=== PATIENT | male | born 1965 | race Caucasian/White ===

== ENCOUNTER 2017-06-10 08:40 | Emergency (ER) | payer SELFPAY ==
[~2017-06-10] VITALS: Ht 182.9 cm; Wt 145.1 kg
[2017-06-10] MEDS ORDERED: SODIUM CHLORIDE 0.9% 1,000 ML IVB ONE (09:25)
[2017-06-10 10:12] LABS: Basophils # (auto) 0 uL; Basophils % (auto) 0.5 % (0.0-2.0); Eosinophils # (auto) 0.2 uL; Eosinophils % (auto) 2.4 % (0.0-7.0); Hematocrit 48.5 % (41.0-53.0); Hemoglobin 16.8 g/dL (13.5-17.5); Lymphocytes # (auto) 1.3 uL; Mean Corpuscular Hemoglobin 30.3 pg (28.0-32.0); Mean Corpuscular Hgb Conc. 34.6 g/dL (32.0-36.0); Mean Corpuscular Volume 87.7 fL (80.0-100.0); Monocytes # (auto) 0.6 uL; Monocytes % (auto) 8.3 % (0.0-12.0); Neutrophils # (auto) 5.5 uL; Neutrophils % (auto) 71.8 % (37.0-80.0); Nucleated Red Blood Cells % 0.1 %; Platelet Count (auto) 225 10^3/uL (140-450); White Blood Cell 7.6 10^3/uL (4.4-10.8)
[2017-06-10 10:14] VITALS: BP 167/94
[2017-06-10 10:39] LABS: Albumin 4.2 g/dL (3.4-5.0); Bilirubin, Total 0.5 mg/dL (0.2-1.0); Calcium 9.2 mg/dL (8.5-10.1); Magnesium 2.3 mg/dL (1.6-2.6); Potassium 3.6 mmol/L (3.5-5.1); Total Protein 7.5 g/dL (6.4-8.2)
[2017-06-10 11:24] LABS: Urine Bilirubin Negative (Negative); Urine Blood Negative /uL (Negative); Urine Color Yellow (Yellow); Urine Glucose Normal (Normal); Urine Ketone Negative (Negative); Urine Nitrite Negative (Negative); Urine RBC <1 /hpf (0 - 3); Urine Squamous Epithelial Cell FEW /hpf (<5); Urine Urobilinogen Normal (Negative); Urine pH 6.5 (5.0-8.0)
== END 2017-06-10 12:39 | disposition home or self-care (01) ==
LOC: ER 08:40
DX: K57.90 Diverticulosis of intestine, part unspecified, without perforation or abscess without bleeding (principal); K76.0 Fatty (change of) liver, not elsewhere classified; E66.01 Morbid (severe) obesity due to excess calories; Z68.43 Body mass index [BMI] 50.0-59.9, adult; F17.210 Nicotine dependence, cigarettes, uncomplicated
CPT/HCPCS: 36415; 74176; 80053; 81001; 83690; 83735; 85025; 93005; 96360; 99285; J7030

== ENCOUNTER 2017-07-28 14:45 | Inpatient (IN) | payer SELFPAY ==
[~2017-07-28] VITALS: Ht 182.9 cm; Wt 147.2 kg
[2017-07-28] MEDS ORDERED: ALBUTEROL SULF 2.5 MG/0.5ML(0.5%) NEB SOLN NEB ONE ×3 (15:00→17:15)
[2017-07-28] MEDS ORDERED: IPRATROPIUM BROM 0.5 MG/2.5ML INH SOL NEB ONE ×2 (15:30→17:15)
[2017-07-28 15:52] LABS: Albumin 3.4 g/dL (3.4-5.0); Alkaline Phosphatase 89 U/L (45-117); Anion Gap 8 (5-15); Aspartate Aminotransferase 39 U/L (15-37); BUN/Creatinine Ratio 20.8; Bilirubin, Total 0.4 mg/dL (0.2-1.0); Blood Urea Nitrogen 15 mg/dL (7-18); Calcium 8.6 mg/dL (8.5-10.1); Carbon Dioxide 33 mmol/L (21-32); Chloride 91 mmol/L (98-107); GFR African American 147 mL/min; GFR Non-African American 121 mL/min; Glucose 118 mg/dL (74-106); Potassium 3.4 mmol/L (3.5-5.1); Sodium 132 mmol/L (136-145); Total Protein 7.1 g/dL (6.4-8.2)
[2017-07-28] MEDS ORDERED: cefTRIAXone 1GM/50ML D5W 50 ML IV ONE (16:00)
[2017-07-28] MEDS ORDERED: methylPREDNISolone SOD SUCC 125 MG/2 ML VL IV ONE (16:00)
[2017-07-28] MEDS ORDERED: AZITHROMYCIN 500MG/ 250ML 250 ML IV ONE (16:00)
[2017-07-28 16:08] LABS: Basophils # (auto) 0 uL; Basophils % (auto) 0.3 % (0.0-2.0); Eosinophils # (auto) 0 uL; Eosinophils % (auto) 0.3 % (0.0-7.0); Hematocrit 44.5 % (41.0-53.0); Hemoglobin 15.8 g/dL (13.5-17.5); Lymphocytes # (auto) 0.7 uL; Lymphocytes % (auto) 15.7 % (10.0-50.0); Mean Corpuscular Hemoglobin 30.3 pg (28.0-32.0); Mean Corpuscular Hgb Conc. 35.6 g/dL (32.0-36.0); Mean Corpuscular Volume 85.1 fL (80.0-100.0); Mean Platelet Volume 8.2 fL (6.9-10.8); Monocytes # (auto) 0.6 uL; Monocytes % (auto) 13.4 % (0.0-12.0); Neutrophils # (auto) 3.1 uL; Neutrophils % (auto) 70.3 % (37.0-80.0); Nucleated Red Blood Cells % 0.2 %; Platelet Count (auto) 149 10^3/uL (140-450); Red Cell Distribution Width 13.8 % (11.8-14.3); White Blood Cell 4.5 10^3/uL (4.4-10.8)
[2017-07-28] MEDS ORDERED: SODIUM CHLORIDE 0.9% 1,000 ML IV ONE (16:15)
[2017-07-28] MEDS ORDERED: POTASSIUM CHL 10% (20 MEQ/15ML) 15ml ORAL SOLN PO ONE (16:45)
[2017-07-28] MEDS: SODIUM CHLORIDE 0.9% 1,000 ML IV SCH (19:25)
[2017-07-28] MEDS ORDERED: ONDANSETRON HCL 4 MG/2 ML VIAL IV PRN (19:30)
[2017-07-28] MEDS ORDERED: TEMAZEPAM 15 MG CAP PO PRN (19:30)
[2017-07-28] MEDS ORDERED: HYDROcodone-ACET 5/325MG TAB PO PRN (19:30)
[2017-07-28] MEDS ORDERED: DOCUSATE SOD 100 MG CAP PO PRN (19:30)
[2017-07-28] MEDS ORDERED: ACETAMINOPHEN 325 MG TAB PO PRN (19:30)
[2017-07-28 21:50] VITALS: BP 132/74
[2017-07-28 22:17] VITALS: BP 132/74
[2017-07-29] MEDS: ALBUTEROL SULF 2.5 MG/0.5ML(0.5%) NEB SOLN NEB SCH ×3 (00:39→12:13)
[2017-07-29] MEDS: IPRATROPIUM BROM 0.5 MG/2.5ML INH SOL NEB SCH ×3 (00:40→12:13)
[2017-07-29 01:58] VITALS: BP 132/74
[2017-07-29] MEDS: SODIUM CHLORIDE 0.9% 1,000 ML IV SCH ×2 (03:20→12:55)
[2017-07-29 04:44] VITALS: BP 136/90
[2017-07-29 06:19] LABS: Urine Bilirubin Negative (Negative); Urine Blood Negative /uL (Negative); Urine Color Yellow (Yellow); Urine Glucose Normal (Normal); Urine Ketone Negative (Negative); Urine Nitrite Negative (Negative); Urine RBC <1 /hpf (0 - 3); Urine Urobilinogen Normal (Negative)
[2017-07-29 06:58] LABS: Basophils # (auto) 0 uL; Basophils % (auto) 0.1 % (0.0-2.0); Eosinophils # (auto) 0 uL; Hematocrit 43.6 % (41.0-53.0); Hemoglobin 15.5 g/dL (13.5-17.5); Lymphocytes # (auto) 0.5 uL; Lymphocytes % (auto) 11.9 % (10.0-50.0); Mean Corpuscular Hemoglobin 30.5 pg (28.0-32.0); Mean Corpuscular Hgb Conc. 35.6 g/dL (32.0-36.0); Mean Corpuscular Volume 85.6 fL (80.0-100.0); Monocytes # (auto) 0.5 uL; Neutrophils # (auto) 2.9 uL; Nucleated Red Blood Cells % 0.3 %; Platelet Count (auto) 144 10^3/uL (140-450); Red Cell Distribution Width 13.4 % (11.8-14.3); White Blood Cell 3.8 10^3/uL (4.4-10.8)
[2017-07-29 07:13] LABS: Albumin 3.1 g/dL (3.4-5.0); Calcium 8.7 mg/dL (8.5-10.1); Potassium 3.8 mmol/L (3.5-5.1)
[2017-07-29 07:17] LABS: Bilirubin, Total 0.3 mg/dL (0.2-1.0); Total Protein 6.9 g/dL (6.4-8.2)
[2017-07-29 08:00] VITALS: BP 154/76
[2017-07-29] MEDS ORDERED: PNEUMOCOCCAL VACC POLYS 25 MCG/0.5 ML VIAL IM ONE (08:00)
[2017-07-29] MEDS ORDERED: INFLUENZA QUAD 2017-2018 0.5 ML SYRG IM ONE (08:00)
[2017-07-29 08:32] VITALS: BP 154/76
[2017-07-29] MEDS ORDERED: cefTRIAXone 1GM/50ML D5W 50 ML IV SCH (09:00)
[2017-07-29] MEDS ORDERED: AZITHROMYCIN 500MG/ 250ML 250 ML IV SCH (10:00)
[2017-07-29] MEDS ORDERED: MULTIPLE VITAMIN TAB PO SCH (10:00)
[2017-07-29 10:34] VITALS: BP 154/76
[2017-07-29 12:38] VITALS: BP 164/81
== END 2017-07-29 13:27 | disposition home or self-care (01) | DRG 193 ==
LOC: ER 14:45 → OVERFLOW 14:46 → WEST WING 21:50
PROVIDERS: ADMIT Internal Medicine; ATTEND Internal Medicine
DX: J18.9 Pneumonia, unspecified organism (principal); J96.91 Respiratory failure, unspecified with hypoxia; E87.1 Hypo-osmolality and hyponatremia; E44.0 Moderate protein-calorie malnutrition; Z68.41 Body mass index [BMI] 40.0-44.9, adult; E66.9 Obesity, unspecified; E87.6 Hypokalemia; J45.909 Unspecified asthma, uncomplicated; E86.0 Dehydration; F17.210 Nicotine dependence, cigarettes, uncomplicated; Z23 Encounter for immunization; Z82.49 Family history of ischemic heart disease and other diseases of the circulatory system; Z83.3 Family history of diabetes mellitus
CPT/HCPCS: 36415; 71020; 80053; 81001; 83605; 83735; 84484; 85025; 87040; 87070; 87205; 93005; 94640; J0696

== ENCOUNTER 2021-12-28 13:29 | Inpatient (IN) | payer SELFPAY ==
[~2021-12-28] VITALS: Ht 182.9 cm; Wt 102.2 kg
[2021-12-28] MEDS ORDERED: SODIUM CHLORIDE 0.9% 1,000 ML IV ONE ×3 (14:15→16:45)
[2021-12-28 14:35] LABS: Basophils # (auto) 0.1 10 ^3/uL (0-0.2); Basophils % (auto) 0.4 % (0.0-2.0); Eosinophils # (auto) 0 10 ^3/uL (0-0.8); Eosinophils % (auto) 0.1 % (0.0-7.0); Hematocrit 44.7 % (41.0-53.0); Hemoglobin 15.8 g/dL (13.5-17.5); Lymphocytes # (auto) 0.7 10 ^3/uL (0.4-5.4); Lymphocytes % (auto) 3.5 % (10.0-50.0); Mean Corpuscular Hemoglobin 29.1 pg (28.0-32.0); Mean Corpuscular Hgb Conc. 35.3 g/dL (32.0-36.0); Mean Corpuscular Volume 82.6 fL (80.0-100.0); Monocytes # (auto) 0.9 10 ^3/uL (0-1.3); Monocytes % (auto) 4.8 % (0.0-12.0); Neutrophils % (auto) 91.2 % (37.0-80.0); Nucleated Red Blood Cells % 0.1 %; Red Blood Cells 5.42 10^6/uL (4.5-5.90); Red Cell Distribution Width 13.1 % (11.8-14.3); White Blood Cell 18.6 10^3/uL (4.4-10.8)
[2021-12-28 14:56] LABS: Salicylate 3.6 mg/dL (2.8-20.0)
[2021-12-28 14:56] LABS: Albumin 2.2 g/dL (3.4-5.0); BUN/Creatinine Ratio 34.7; Calcium 8.2 mg/dL (8.5-10.1); Potassium 3.3 mmol/L (3.5-5.1)
[2021-12-28 14:58] LABS: Acetaminophen < 2.0 ug/mL (10-30)
[2021-12-28 14:59] LABS: Bilirubin, Total 0.3 mg/dL (0.2-1.0); Total Protein 5.2 g/dL (6.4-8.2)
[2021-12-28 15:01] LABS: Lactic Acid w/Reflex 2.9 mmol/L (0.4-2.0)
[2021-12-28 15:12] LABS: Beta HCG, Quantitative < 1 mlU/mL (< 1)
[2021-12-28] MEDS ORDERED: methylPREDNISolone SOD SUCC 125 MG/2 ML VL IV ONE (16:15)
[2021-12-28] MEDS ORDERED: IPRATROPIUM BROM 0.5 MG/2.5ML INH SOL NEB ONE ×2 (16:15→20:00)
[2021-12-28] MEDS ORDERED: cefTRIAXone 1GM/50ML D5W 50 ML IV ONE (16:15)
[2021-12-28] MEDS ORDERED: ALBUTEROL SULF 2.5 MG/0.5ML(0.5%) NEB SOLN NEB ONE (16:15)
[2021-12-28] MEDS ORDERED: AZITHROMYCIN 500MG/ 250ML 250 ML IV ONE (16:15)
[2021-12-28] MEDS ORDERED: SODIUM CHLORIDE 0.9% 500 ML IV ONE (16:45)
[2021-12-28] MEDS ORDERED: POTASSIUM EFFERVESENT TAB 25 MEQ PO ONE (17:15)
[2021-12-28 17:26] LABS: Urine Bacteria NONE SEEN /hpf (None Seen); Urine Blood Negative /uL (Negative); Urine Hyaline Cast FEW /lpf (0 - 2); Urine Mucus FEW (None Seen); Urine Specific Gravity 1.024 (1.001-1.035); Urine WBC 3 /hpf (0 - 3)
[2021-12-28] MEDS ORDERED: MORPHINE SULFATE INJECTION 2 MG/ML SYRG IV PRN ×2 (17:30→20:00)
[2021-12-28] MEDS ORDERED: NITROGLYCERIN 0.4 MG SL TAB SL PRN (17:30)
[2021-12-28] MEDS ORDERED: DEXTROSE (50%) 50ML SYRG IV PRN (17:30)
[2021-12-28] MEDS ORDERED: IOHEXOL 350 MG/ML 100ML IJ ONE (18:01)
[2021-12-28] MEDS ORDERED: FAMOTIDINE (10MG/ML) 2ML VL IV ONE (20:00)
[2021-12-28] MEDS ORDERED: BUDESONIDE (INHALATION) 0.5 MG/2 ML NEB NEB ONE (20:00)
[2021-12-28] MEDS ORDERED: ONDANSETRON HCL 4 MG/2 ML VIAL IV PRN (20:00)
[2021-12-28] MEDS ORDERED: ALBUTEROL SULF 2.5 MG/0.5ML(0.5%) NEB SOLN NEB PRN (20:00)
[2021-12-28] MEDS ORDERED: ACETAMINOPHEN 325 MG TAB PO PRN (20:00)
[2021-12-28] MEDS ORDERED: hydrALAZINE HCL 20 MG/ML VL IV PRN (20:00)
[2021-12-28] MEDS ORDERED: LORazepam 0.5 MG TAB PO PRN (20:00)
[2021-12-28] MEDS ORDERED: HYDROcodone-ACET 5/325MG TAB PO PRN (20:00)
[2021-12-28] MEDS ORDERED: IPRATROPIUM BROM 0.5 MG/2.5ML INH SOL NEB PRN (20:15)
[2021-12-28 20:52] LABS: Magnesium 2.2 mg/dL (1.6-2.6); Phosphorus 2.4 mg/dL (2.5-4.90)
[2021-12-28] MEDS ORDERED: ACCU-CHEK COMFORT CURVE STRIP VI SCH (22:00)
[2021-12-28] MEDS ORDERED: IPRATROPIUM BROM 0.5 MG/2.5ML INH SOL NEB SCH (22:00)
[2021-12-28] MEDS ORDERED: ACETYLCYSTEINE 10 %(100MG/ML) SOL 4ML NEB SCH (22:00)
[2021-12-28] MEDS ORDERED: BUDESONIDE (INHALATION) 0.5 MG/2 ML NEB NEB SCH (22:00)
[2021-12-28] MEDS ORDERED: InsuLIN REG 1unit/0.01ml Soln (100units/ml) SC SCH (22:00)
[2021-12-28] MEDS: SODIUM CHLORIDE 0.9% 1,000 ML IV SCH (22:05)
[2021-12-28 22:53] VITALS: BP 122/62
[2021-12-28] MEDS: methylPREDNISolone SOD SUCC 40 MG/ML VL IV SCH (23:43)
[2021-12-28] MEDS: POTASSIUM CHL 20 Meq TABLET PO SCH (23:43)
[2021-12-29] VITALS (8 sets, daily range): BP systolic 113–127; BP diastolic 58–76
[2021-12-29 00:02] LABS: INR 1.06 (0.9-1.15)
[2021-12-29] MEDS: ACCU-CHEK COMFORT CURVE STRIP VI SCH ×5 (04:49→18:52)
[2021-12-29] MEDS: methylPREDNISolone SOD SUCC 40 MG/ML VL IV SCH ×2 (04:50→14:08)
[2021-12-29] MEDS: InsuLIN REG 1unit/0.01ml Soln (100units/ml) SC SCH ×5 (05:04→18:55)
[2021-12-29 05:33] LABS: Basophils # (auto) 0 10 ^3/uL (0-0.2); Basophils % (auto) 0.3 % (0.0-2.0); Eosinophils # (auto) 0 10 ^3/uL (0-0.8); Eosinophils % (auto) 0.1 % (0.0-7.0); Hematocrit 42.2 % (41.0-53.0); Hemoglobin 15.1 g/dL (13.5-17.5); Lymphocytes # (auto) 0.5 10 ^3/uL (0.4-5.4); Lymphocytes % (auto) 3.8 % (10.0-50.0); Mean Corpuscular Hemoglobin 29.8 pg (28.0-32.0); Mean Corpuscular Hgb Conc. 35.8 g/dL (32.0-36.0); Mean Corpuscular Volume 83.2 fL (80.0-100.0); Monocytes # (auto) 0.3 10 ^3/uL (0-1.3); Monocytes % (auto) 2.7 % (0.0-12.0); Neutrophils # (auto) 11.7 10 ^3/uL (1.6-8.6); Neutrophils % (auto) 93.1 % (37.0-80.0); Nucleated Red Blood Cells % 0.1 %; Red Blood Cells 5.08 10^6/uL (4.5-5.90); Red Cell Distribution Width 12.7 % (11.8-14.3); White Blood Cell 12.5 10^3/uL (4.4-10.8)
[2021-12-29 05:58] LABS: Albumin 2.1 g/dL (3.4-5.0); Anion Gap 7 (5-15); Blood Urea Nitrogen 33 mg/dL (7-18); Calcium 8.8 mg/dL (8.5-10.1); Carbon Dioxide 29 mmol/L (21-32); Chloride 93 mmol/L (98-107); Glucose 388 mg/dL (74-106); Lipase 48 U/L (73-393); Magnesium 2.3 mg/dL (1.6-2.6); Potassium 3.4 mmol/L (3.5-5.1); Sodium 129 mmol/L (136-145)
[2021-12-29 05:59] LABS: INR 1.02 (0.9-1.15); Partial Thromboplastin Time 29.4 sec (23.6-33.0)
[2021-12-29 06:08] LABS: Alanine Aminotransferase 17 U/L (16-61); Alkaline Phosphatase 109 U/L (45-117); Aspartate Aminotransferase 13 U/L (15-37); BUN/Creatinine Ratio 37.9; Bilirubin, Total 0.3 mg/dL (0.2-1.0); Cholesterol 202 mg/dL (< 200); Creatine Kinase IFCC 25 U/L (39-308); GFR African American 116 mL/min; GFR Non-African American 96 mL/min; HDL Cholesterol 10 mg/dL (40-59); Phosphorus 3.1 mg/dL (2.5-4.90); Total Protein 6.6 g/dL (6.4-8.2); Triglycerides 577 mg/dL (< 150)
[2021-12-29 06:12] LABS: Thyroid Stimulating Hormone 0.39 uIU/mL (0.358-3.74)
[2021-12-29 06:59] LABS: CRP High Sensitivity > 19 mg/dL (< 0.3)
[2021-12-29] MEDS ORDERED: INSULIN LANTUS (GLARGINE) 1 /0.01ml (100units/ml) SC SCH (07:00)
[2021-12-29] MEDS ORDERED: InsuLIN REG 1unit/0.01ml Soln (100units/ml) SC SCH (07:00)
[2021-12-29] MEDS: cefTRIAXone 1GM/50ML D5W 50 ML IV SCH (08:02)
[2021-12-29] MEDS: AZITHROMYCIN 500MG/ 250ML 250 ML IV SCH (08:50)
[2021-12-29] MEDS: POTASSIUM CHL 20 Meq TABLET PO SCH ×2 (08:50→22:26)
[2021-12-29] MEDS: ENOXAPARIN SOD 40 MG/0.4 ML SYRINGE SC SCH (08:51)
[2021-12-29] MEDS ORDERED: FAMOTIDINE (10MG/ML) 2ML VL IV SCH (10:00)
[2021-12-29] MEDS: SODIUM CHLORIDE 0.9% 1,000 ML IV SCH ×2 (10:30→21:09)
[2021-12-29] MEDS ORDERED: DEXTROSE (50%) 50ML SYRG IV PRN (12:00)
[2021-12-29] MEDS: IPRATROPIUM BROM 0.5 MG/2.5ML INH SOL NEB SCH (18:46)
[2021-12-29] MEDS: ALBUTEROL SULF 2.5 MG/0.5ML(0.5%) NEB SOLN NEB SCH (18:46)
[2021-12-29] MEDS ORDERED: ATORVASTATIN 20 MG TAB PO SCH (22:00)
[2021-12-29] MEDS: INSULIN LANTUS (GLARGINE) 1 /0.01ml (100units/ml) SC SCH (22:28)
[2021-12-29] MEDS ORDERED: InsuLIN REG 1unit/0.01ml Soln (100units/ml) IV ONE (22:45)
[2021-12-29] MEDS ORDERED: InsuLIN REG 1unit/0.01ml Soln (100units/ml) SC ONE (23:15)
[2021-12-30] MEDS: ACCU-CHEK COMFORT CURVE STRIP VI SCH ×3 (00:03→12:07)
[2021-12-30] MEDS: InsuLIN REG 1unit/0.01ml Soln (100units/ml) SC SCH ×3 (00:17→12:09)
[2021-12-30] MEDS: IPRATROPIUM BROM 0.5 MG/2.5ML INH SOL NEB SCH ×2 (00:30→13:28)
[2021-12-30] MEDS: ALBUTEROL SULF 2.5 MG/0.5ML(0.5%) NEB SOLN NEB SCH ×3 (00:30→13:28)
[2021-12-30 05:09] LABS: Basophils # (auto) 0 10 ^3/uL (0-0.2); Basophils % (auto) 0.3 % (0.0-2.0); Eosinophils # (auto) 0 10 ^3/uL (0-0.8); Hematocrit 38.2 % (41.0-53.0); Hemoglobin 13.9 g/dL (13.5-17.5); Lymphocytes # (auto) 0.8 10 ^3/uL (0.4-5.4); Mean Corpuscular Hemoglobin 29.8 pg (28.0-32.0); Mean Corpuscular Hgb Conc. 36.2 g/dL (32.0-36.0); Mean Corpuscular Volume 82.3 fL (80.0-100.0); Monocytes # (auto) 1.2 10 ^3/uL (0-1.3); Monocytes % (auto) 7.7 % (0.0-12.0); Neutrophils # (auto) 13.1 10 ^3/uL (1.6-8.6); Red Blood Cells 4.65 10^6/uL (4.5-5.90); Red Cell Distribution Width 12.6 % (11.8-14.3)
[2021-12-30 05:14] VITALS: BP 135/84
[2021-12-30 05:31] LABS: BUN/Creatinine Ratio 39.7; Calcium 9.1 mg/dL (8.5-10.1)
[2021-12-30] MEDS: INSULIN LANTUS (GLARGINE) 1 /0.01ml (100units/ml) SC SCH (06:51)
[2021-12-30] MEDS: cefTRIAXone 1GM/50ML D5W 50 ML IV SCH (08:45)
[2021-12-30] MEDS: POTASSIUM CHL 20 Meq TABLET PO SCH (08:45)
[2021-12-30] MEDS: ENOXAPARIN SOD 40 MG/0.4 ML SYRINGE SC SCH (08:45)
[2021-12-30] MEDS: AZITHROMYCIN 500MG/ 250ML 250 ML IV SCH (08:45)
[2021-12-30 09:00] VITALS: BP 124/76
[2021-12-30] MEDS ORDERED: POTASSIUM CHL 20 Meq TABLET PO ONE (09:15)
[2021-12-30 12:34] VITALS: BP 133/85
[2021-12-30] MEDS ORDERED: ASPI1TAB20 PO (14:50)
[2021-12-30] MEDS ORDERED: ATOR20TA50 PO (14:50)
[2021-12-30] MEDS ORDERED: METF-370 PO (14:50)
[2021-12-30] MEDS ORDERED: LEVO750T64 PO (14:50)
[2021-12-30] MEDS ORDERED: GLIP5TAB12 PO (14:50)
[2021-12-30] MEDS ORDERED: LISI2.5T47 PO (14:50)
[2021-12-30] MEDS ORDERED: ALBUAER3 IN (14:50)
[2021-12-30 15:24] VITALS: BP 133/85
[2021-12-30] MEDS ORDERED: metFORMIN HYDROCHLORIDE 500 MG TAB PO SCH (18:00)
[2021-12-30] MEDS ORDERED: glipiZIDE 5 MG TAB PO SCH (18:00)
[2021-12-30] MEDS ORDERED: INSULIN LANTUS (GLARGINE) 1 /0.01ml (100units/ml) SC SCH (22:00)
== END 2021-12-30 17:20 | disposition home or self-care (01) | DRG 871 ==
LOC: ER 13:29 → TELE 17:19 → TELE-WESTW 22:05 → WEST WING 12-30 09:21
PROVIDERS: ADMIT Hospitalist; ATTEND Internal Medicine
DX: A41.9 Sepsis, unspecified organism (principal); J96.20 Acute and chronic respiratory failure, unspecified whether with hypoxia or hypercapnia; J18.1 Lobar pneumonia, unspecified organism; J44.1 Chronic obstructive pulmonary disease with (acute) exacerbation; G45.9 Transient cerebral ischemic attack, unspecified; E87.1 Hypo-osmolality and hyponatremia; J44.0 Chronic obstructive pulmonary disease with (acute) lower respiratory infection; N17.9 Acute kidney failure, unspecified; E11.65 Type 2 diabetes mellitus with hyperglycemia; N18.2 Chronic kidney disease, stage 2 (mild); E78.5 Hyperlipidemia, unspecified; E86.0 Dehydration; E11.22 Type 2 diabetes mellitus with diabetic chronic kidney disease; E78.1 Pure hyperglyceridemia; E87.6 Hypokalemia; F17.210 Nicotine dependence, cigarettes, uncomplicated; I12.9 Hypertensive chronic kidney disease with stage 1 through stage 4 chronic kidney disease, or unspecified chronic kidney disease; Z20.822 Contact with and (suspected) exposure to COVID-19; R79.89 Other specified abnormal findings of blood chemistry; E66.01 Morbid (severe) obesity due to excess calories; Z68.30 Body mass index [BMI] 30.0-30.9, adult; Z79.4 Long term (current) use of insulin
CPT/HCPCS: 36415; 70450; 71045; 71275; 80048; 80053; 80061; 80329; 81001; 82140; 82550; 82728; 82962; 83036; 83605; 83615; 83690; 83735; 83880; 84100; 84443; 84484; 84702; 85025; 85379; 85610; 85652; 85730; 86141; 87040; 93005; 94640; 96361; 96365; 96368; 96375; G0378; J0696; J1815; J3490

== ENCOUNTER → 2022-01-05 | Outpatient (CLI) | payer SELFPAY ==
[2022-01-05 11:52] LABS: Hematocrit 49.6 % (41.0-53.0); Hemoglobin 17.2 g/dL (13.5-17.5); Mean Corpuscular Hgb Conc. 34.7 g/dL (32.0-36.0); Mean Corpuscular Volume 83.4 fL (80.0-100.0); Red Blood Cells 5.95 10^6/uL (4.5-5.90); Red Cell Distribution Width 13.4 % (11.8-14.3); White Blood Cell 14.2 10^3/uL (4.4-10.8)
[2022-01-05 12:09] LABS: Basophils % (manual) 0 (0.0-2.0); Blast Cells 0; Metamyelocytes % 0; Myelocytes % 0; Promyelocytes % 0; Reactive Lymphocytes 0
[2022-01-05 12:28] LABS: Band Neutrophils % (manual) 1; Eosinophils % (manual) 1 (0-7); Lymphocytes % (manual) 6 (10.0-50.0); Monocytes % (manual) 11 (0-12)
[2022-01-05 13:20] LABS: Calcium 9.3 mg/dL (8.5-10.1); Potassium 3.7 mmol/L (3.5-5.1)
[2022-01-05 13:23] LABS: BUN/Creatinine Ratio 34.9
== END | disposition home or self-care (01) ==
LOC: LAB 11:14
PROVIDERS: ATTEND Internal Medicine
DX: E11.9 Type 2 diabetes mellitus without complications (principal); J18.9 Pneumonia, unspecified organism
CPT/HCPCS: 36415; 80048; 85007; 85027

== ENCOUNTER 2022-07-13 23:38 | Inpatient (IN) | payer MEDICAID ==
[~2022-07-13] VITALS: Ht 182.9 cm; Wt 112.9 kg
[2022-07-14] MEDS ORDERED: ALBUTEROL SULF 2.5 MG/0.5ML(0.5%) NEB SOLN NEB ONE
[2022-07-14] MEDS ORDERED: IPRATROPIUM BROM 0.5 MG/2.5ML INH SOL NEB ONE
[2022-07-14] MEDS ORDERED: methylPREDNISolone SOD SUCC 125 MG/2 ML VL IV ONE
[2022-07-14 00:57] LABS: Basophils # (auto) 0 10 ^3/uL (0-0.2); Basophils % (auto) 0.4 % (0.0-2.0); Eosinophils # (auto) 0.2 10 ^3/uL (0-0.8); Eosinophils % (auto) 1.5 % (0.0-7.0); Hematocrit 46.5 % (41.0-53.0); Hemoglobin 15.7 g/dL (13.5-17.5); Lymphocytes # (auto) 1.2 10 ^3/uL (0.4-5.4); Lymphocytes % (auto) 9.9 % (10.0-50.0); Mean Corpuscular Hemoglobin 29.1 pg (28.0-32.0); Mean Corpuscular Hgb Conc. 33.9 g/dL (32.0-36.0); Mean Corpuscular Volume 85.8 fL (80.0-100.0); Monocytes # (auto) 0.6 10 ^3/uL (0-1.3); Monocytes % (auto) 4.9 % (0.0-12.0); Neutrophils # (auto) 10.2 10 ^3/uL (1.6-8.6); Neutrophils % (auto) 83.3 % (37.0-80.0); Nucleated Red Blood Cells % 0.1 %; Red Blood Cells 5.41 10^6/uL (4.5-5.90); Red Cell Distribution Width 14.1 % (11.8-14.3); White Blood Cell 12.2 10^3/uL (4.4-10.8)
[2022-07-14 01:16] LABS: Albumin 3.6 g/dL (3.4-5.0); BUN/Creatinine Ratio 26.5; Calcium 8.8 mg/dL (8.5-10.1); Potassium 3.9 mmol/L (3.5-5.1)
[2022-07-14 01:19] LABS: Bilirubin, Total 0.4 mg/dL (0.2-1.0); Total Protein 6.2 g/dL (6.4-8.2)
[2022-07-14] MEDS ORDERED: NITROGLYCERIN 0.4 MG SL TAB SL PRN ×2 (11:00)
[2022-07-14] MEDS ORDERED: ALUM & MAG HYDROX-SIMETH LIQ(MAALOX) 30 ML PO ONE (11:00)
[2022-07-14] MEDS ORDERED: MORPHINE SULFATE 4 MG/ML SYR/VIAL IV PRN (11:00)
[2022-07-14] MEDS ORDERED: ONDANSETRON HCL 4 MG/2 ML VIAL IV PRN (11:00)
[2022-07-14] MEDS ORDERED: IPRATROPIUM BROM 0.5 MG/2.5ML INH SOL NEB PRN (11:00)
[2022-07-14] MEDS ORDERED: FUROSEMIDE 40 MG/4 ML VIAL IV ONE (11:00)
[2022-07-14] MEDS ORDERED: ALBUTEROL SULF 2.5 MG/0.5ML(0.5%) NEB SOLN NEB PRN (11:00)
[2022-07-14] MEDS ORDERED: ACETAMINOPHEN 325 MG TAB PO PRN (11:00)
[2022-07-14] MEDS ORDERED: MORPHINE SULFATE INJ 2 MG/ml SYRG IV PRN (11:00)
[2022-07-14 12:06] LABS: INR 0.99 (0.9-1.15); Magnesium 2.2 mg/dL (1.6-2.6)
[2022-07-14] MEDS: ENOXAPARIN SOD 100 MG/1 ML SYRINGE SC SCH ×2 (13:11→23:16)
[2022-07-14] MEDS ORDERED: DEXTROSE (50%) 50ML SYRG IV PRN (15:00)
[2022-07-14] MEDS: ACCU-CHEK COMFORT CURVE STRIP VI SCH ×2 (18:22→23:16)
[2022-07-14] MEDS: InsuLIN REG 1unit/0.01ml Soln (100units/ml) SC SCH ×2 (18:23→23:22)
[2022-07-14 20:56] VITALS: BP 140/98
[2022-07-14] MEDS ORDERED: ATORVASTATIN 20 MG TAB PO SCH (22:00)
[2022-07-14] MEDS ORDERED: METOPROLOL TARTRATE 25 MG TAB PO SCH (22:00)
[2022-07-14 22:01] VITALS: BP 124/84
[2022-07-14 23:48] VITALS: BP 124/84
[2022-07-15 04:43] VITALS: BP 92/56
[2022-07-15 05:31] LABS: Basophils # (auto) 0.1 10 ^3/uL (0-0.2); Basophils % (auto) 0.3 % (0.0-2.0); Eosinophils # (auto) 0 10 ^3/uL (0-0.8); Hematocrit 47.8 % (41.0-53.0); Hemoglobin 15.9 g/dL (13.5-17.5); Lymphocytes % (auto) 5.8 % (10.0-50.0); Mean Corpuscular Hemoglobin 28.3 pg (28.0-32.0); Mean Corpuscular Hgb Conc. 33.2 g/dL (32.0-36.0); Mean Corpuscular Volume 85.2 fL (80.0-100.0); Monocytes # (auto) 1.1 10 ^3/uL (0-1.3); Monocytes % (auto) 6.5 % (0.0-12.0); Neutrophils # (auto) 15.2 10 ^3/uL (1.6-8.6); Neutrophils % (auto) 87.4 % (37.0-80.0); Nucleated Red Blood Cells % 0.1 %; Red Blood Cells 5.61 10^6/uL (4.5-5.90); White Blood Cell 17.4 10^3/uL (4.4-10.8)
[2022-07-15 05:40] LABS: Albumin 3.5 g/dL (3.4-5.0); BUN/Creatinine Ratio 23.5; Calcium 9.3 mg/dL (8.5-10.1); Potassium 4.3 mmol/L (3.5-5.1)
[2022-07-15 05:48] LABS: Bilirubin, Total 0.7 mg/dL (0.2-1.0); Total Protein 6.6 g/dL (6.4-8.2)
[2022-07-15] MEDS: InsuLIN REG 1unit/0.01ml Soln (100units/ml) SC SCH (06:31)
[2022-07-15] MEDS: ACCU-CHEK COMFORT CURVE STRIP VI SCH (06:31)
[2022-07-15 09:00] VITALS: BP 104/64
[2022-07-15] MEDS ORDERED: FUROSEMIDE 40 MG/4 ML VIAL IV SCH (10:00)
[2022-07-15] MEDS: DOCUSATE SOD 100 MG CAP PO SCH ×2 (10:00→11:06)
[2022-07-15] MEDS ORDERED: levoFLOXacin 750MG 150 ML IV STA (10:30)
[2022-07-15] MEDS ORDERED: methylPREDNISolone SOD SUCC 40 MG/ML VL IM ONE (10:30)
[2022-07-15] MEDS: ASPirin 81 mg TAB PO SCH (11:06)
[2022-07-15] MEDS: ENOXAPARIN SOD 100 MG/1 ML SYRINGE SC SCH (11:06)
[2022-07-15] MEDS ORDERED: methylPREDNISolone SOD SUCC 40 MG/ML VL IV ONE (11:15)
[2022-07-15] MEDS: methylPREDNISolone SOD SUCC 40 MG/ML VL IV SCH ×3 (11:25→23:46)
[2022-07-15] MEDS ORDERED: IOHEXOL 350 MG/ML 100ML IJ ONE (12:32)
[2022-07-15 13:01] VITALS: BP 96/66
[2022-07-15 16:00] VITALS: BP 117/76
[2022-07-15] MEDS: SACUBITRIL-VALSARTAN 24mg/26mg TAB PO SCH (20:54)
[2022-07-15 22:00] VITALS: BP 133/79
[2022-07-15 22:30] VITALS: BP 133/79
[2022-07-16 05:30] VITALS: BP 136/86
[2022-07-16] MEDS: DOCUSATE SOD 100 MG CAP PO SCH (08:05)
[2022-07-16] MEDS: ASPirin 81 mg TAB PO SCH (08:05)
[2022-07-16] MEDS: levoFLOXacin 750MG 150 ML IV SCH (08:05)
[2022-07-16] MEDS: SACUBITRIL-VALSARTAN 24mg/26mg TAB PO SCH ×2 (08:06→21:31)
[2022-07-16] MEDS: methylPREDNISolone SOD SUCC 40 MG/ML VL IV SCH ×4 (08:06→23:33)
[2022-07-16 09:00] VITALS: BP 137/91
[2022-07-16 10:59] LABS: Basophils # (auto) 0 10 ^3/uL (0-0.2); Basophils % (auto) 0.1 % (0.0-2.0); Eosinophils # (auto) 0 10 ^3/uL (0-0.8); Hematocrit 48.2 % (41.0-53.0); Hemoglobin 16.2 g/dL (13.5-17.5); Lymphocytes # (auto) 0.4 10 ^3/uL (0.4-5.4); Lymphocytes % (auto) 2.6 % (10.0-50.0); Mean Corpuscular Hemoglobin 28.8 pg (28.0-32.0); Mean Corpuscular Hgb Conc. 33.7 g/dL (32.0-36.0); Mean Corpuscular Volume 85.4 fL (80.0-100.0); Monocytes # (auto) 0.6 10 ^3/uL (0-1.3); Monocytes % (auto) 3.7 % (0.0-12.0); Neutrophils # (auto) 15.3 10 ^3/uL (1.6-8.6); Neutrophils % (auto) 93.6 % (37.0-80.0); Nucleated Red Blood Cells % 0.1 %; Red Blood Cells 5.65 10^6/uL (4.5-5.90); Red Cell Distribution Width 13.9 % (11.8-14.3); White Blood Cell 16.3 10^3/uL (4.4-10.8)
[2022-07-16 13:01] VITALS: BP 114/73
[2022-07-16 16:40] VITALS: BP_SYST 106; BP_SYST 109; BP_DIAS 49; BP_DIAS 52
[2022-07-16 22:00] VITALS: BP 123/68
[2022-07-17] MEDS ORDERED: MELATONIN 5 MG TAB PO ONE (00:15)
[2022-07-17 05:10] VITALS: BP 118/67
[2022-07-17] MEDS: methylPREDNISolone SOD SUCC 40 MG/ML VL IV SCH ×4 (05:23→23:28)
[2022-07-17 09:00] VITALS: BP 112/75
[2022-07-17] MEDS: DOCUSATE SOD 100 MG CAP PO SCH ×3 (09:20→21:17)
[2022-07-17] MEDS: SACUBITRIL-VALSARTAN 24mg/26mg TAB PO SCH ×2 (09:20→21:16)
[2022-07-17] MEDS: ASPirin 81 mg TAB PO SCH (09:20)
[2022-07-17] MEDS: levoFLOXacin 750MG 150 ML IV SCH (09:21)
[2022-07-17 13:00] VITALS: BP 125/78
[2022-07-17] MEDS: NICOTINE 14 MG/24HR TOPICAL PATCH TD SCH (16:28)
[2022-07-17] MEDS ORDERED: NICOTINE 14 MG/24HR TOPICAL PATCH TD SCH (17:00)
[2022-07-17 17:27] VITALS: BP 124/80
[2022-07-17] MEDS: TEMAZEPAM 15 MG CAP PO SCH ×2 (21:16→21:17)
[2022-07-17 21:37] VITALS: BP 131/91
[2022-07-18 00:16] VITALS: BP 131/91
[2022-07-18 04:49] VITALS: BP 138/93
[2022-07-18] MEDS: methylPREDNISolone SOD SUCC 40 MG/ML VL IV SCH ×2 (05:36→11:33)
[2022-07-18] MEDS ORDERED: ADENOSINE 90 MG in GIVE UN-DILUTED 0 ML IV STA (07:56)
[2022-07-18 08:00] VITALS: BP 115/47
[2022-07-18] MEDS: levoFLOXacin 750MG 150 ML IV SCH (09:27)
[2022-07-18] MEDS: SACUBITRIL-VALSARTAN 24mg/26mg TAB PO SCH (09:28)
[2022-07-18] MEDS: ASPirin 81 mg TAB PO SCH (09:28)
[2022-07-18] MEDS: DOCUSATE SOD 100 MG CAP PO SCH ×2 (09:28→22:00)
[2022-07-18 12:00] VITALS: BP 139/90
[2022-07-18] MEDS: ALPRAZolam 0.25 MG TAB PO SCH ×2 (13:20→22:20)
[2022-07-18 16:00] VITALS: BP 114/68
[2022-07-18] MEDS ORDERED: NICOTINE 14 MG/24HR TOPICAL PATCH TD SCH (16:00)
[2022-07-18] MEDS: NICOTINE 14 MG/24HR TOPICAL PATCH TD SCH (17:01)
[2022-07-18] MEDS: CARVEDILOL 3.125 MG TAB PO SCH (22:21)
[2022-07-18 22:29] VITALS: BP 113/73
[2022-07-19 05:22] LABS: Basophils # (auto) 0 10 ^3/uL (0-0.2); Eosinophils # (auto) 0.1 10 ^3/uL (0-0.8); Monocytes # (auto) 1.4 10 ^3/uL (0-1.3)
[2022-07-19 05:24] LABS: Basophils % (auto) 0.4 % (0.0-2.0); Eosinophils % (auto) 0.5 % (0.0-7.0); Hemoglobin 17.9 g/dL (13.5-17.5); Lymphocytes # (auto) 1.6 10 ^3/uL (0.4-5.4); Lymphocytes % (auto) 11.9 % (10.0-50.0); Mean Corpuscular Hemoglobin 29.4 pg (28.0-32.0); Mean Corpuscular Hgb Conc. 34.4 g/dL (32.0-36.0); Mean Corpuscular Volume 85.6 fL (80.0-100.0); Monocytes % (auto) 10.2 % (0.0-12.0); Neutrophils # (auto) 10.3 10 ^3/uL (1.6-8.6); Nucleated Red Blood Cells % 0.5 %; Red Blood Cells 6.08 10^6/uL (4.5-5.90); Red Cell Distribution Width 13.7 % (11.8-14.3); White Blood Cell 13.3 10^3/uL (4.4-10.8)
[2022-07-19] MEDS: ALPRAZolam 0.25 MG TAB PO SCH ×2 (05:43→14:00)
[2022-07-19 05:45] LABS: BUN/Creatinine Ratio 28.9; Calcium 8.8 mg/dL (8.5-10.1); Magnesium 2.3 mg/dL (1.6-2.6); Potassium 4.3 mmol/L (3.5-5.1)
[2022-07-19 05:57] VITALS: BP 127/91
[2022-07-19 09:00] VITALS: BP 104/74
[2022-07-19] MEDS: levoFLOXacin 750MG 150 ML IV SCH (09:40)
[2022-07-19] MEDS: ASPirin 81 mg TAB PO SCH (09:40)
[2022-07-19] MEDS: CARVEDILOL 3.125 MG TAB PO SCH (09:41)
[2022-07-19] MEDS: DOCUSATE SOD 100 MG CAP PO SCH (09:41)
[2022-07-19] MEDS ORDERED: FUROSEMIDE 20 MG/2 ML VIAL IV SCH (10:00)
[2022-07-19] MEDS ORDERED: LISINOPRIL 20 MG TAB PO SCH (10:00)
[2022-07-19 13:00] VITALS: BP 101/62
[2022-07-19] MEDS ORDERED: ASPI-498 OR (13:37)
[2022-07-19] MEDS ORDERED: CAR3125T OR (13:37)
[2022-07-19] MEDS ORDERED: FURO1TAB33 PO (13:37)
[2022-07-19] MEDS ORDERED: LISI-275 PO (13:37)
== END 2022-07-19 14:30 | disposition home or self-care (01) | DRG 140 ==
LOC: ER 23:38 → TELE 07-14 11:00 → CENTRAL 07-14 21:35 → TELE-CENTR 07-14 21:36
PROVIDERS: ADMIT Nurse Practitioner Family; ATTEND Nurse Practitioner Acute Care
DX: J44.1 Chronic obstructive pulmonary disease with (acute) exacerbation (principal); J96.01 Acute respiratory failure with hypoxia; I50.41 Acute combined systolic (congestive) and diastolic (congestive) heart failure; I27.20 Pulmonary hypertension, unspecified; I42.0 Dilated cardiomyopathy; J18.9 Pneumonia, unspecified organism; I11.0 Hypertensive heart disease with heart failure; I42.9 Cardiomyopathy, unspecified; Z20.822 Contact with and (suspected) exposure to COVID-19; J44.0 Chronic obstructive pulmonary disease with (acute) lower respiratory infection; E11.65 Type 2 diabetes mellitus with hyperglycemia; E66.9 Obesity, unspecified; F15.10 Other stimulant abuse, uncomplicated; Z79.82 Long term (current) use of aspirin; Z82.49 Family history of ischemic heart disease and other diseases of the circulatory system; Z83.3 Family history of diabetes mellitus; Z68.33 Body mass index [BMI] 33.0-33.9, adult
CPT/HCPCS: 36415; 36600; 71045; 71046; 71275; 80048; 80053; 80061; 82805; 82962; 83036; 83735; 83880; 84132; 84484; 85025; 85610; 87426; 87804; 93005; 93306; 93970; 94640; 96372; 96374; 96375; 99291; G0378; J0153; J1815; J1956

== ENCOUNTER 2024-01-29 09:12 | Inpatient (IN) | payer MEDICAID ==
[2024-01-29] VITALS (7 sets, daily range): BP systolic 116–126; BP diastolic 74–75; PULSE 72–103; RESP 16–20; TEMP 98.1–98.3; O2SAT 91–98
[~2024-01-29] VITALS: Ht 182.9 cm; Wt 136.7 kg
[~2024-01-29 09:12] MED LIST: ALBU108A5 INH; ASPI-498 OR; ATOR20TA50 PO; CARV-214 OR; FURO1TAB33 PO; LISI-275 PO; METF-372 PO; POTA15TA12 PO
[2024-01-29 10:29] LABS: Basophils # (auto) 0.1 10 ^3/uL (0-0.2); Basophils % (auto) 0.9 % (0.0-2.0); Eosinophils # (auto) 0.2 10 ^3/uL (0-0.8); Eosinophils % (auto) 2.1 % (0.0-7.0); Hematocrit 47.4 % (41.0-53.0); Hemoglobin 15.9 g/dL (13.5-17.5); Lymphocytes # (auto) 0.8 10 ^3/uL (0.4-5.4); Lymphocytes % (auto) 9.2 % (10.0-50.0); Mean Corpuscular Hemoglobin 29.1 pg (28.0-32.0); Mean Corpuscular Hgb Conc. 33.6 g/dL (32.0-36.0); Mean Corpuscular Volume 86.6 fL (80.0-100.0); Monocytes # (auto) 0.6 10 ^3/uL (0-1.3); Monocytes % (auto) 6.3 % (0.0-12.0); Neutrophils # (auto) 7.5 10 ^3/uL (1.6-8.6); Neutrophils % (auto) 81.5 % (37.0-80.0); Nucleated Red Blood Cells % 0.5 %; Red Blood Cells 5.47 10^6/uL (4.5-5.90); Red Cell Distribution Width 15.3 % (11.8-14.3); White Blood Cell 9.2 10^3/uL (4.4-10.8)
[2024-01-29 10:41] LABS: Chloride 105 mmol/L (98-107); Potassium 4.2 mmol/L (3.5-5.1); Sodium 140 mmol/L (136-145)
[2024-01-29] MEDS: IPRATROPIUM BROM 0.5 MG/2.5ML INH SOL NEB ONE (10:41)
[2024-01-29] MEDS: ALBUTEROL SULF 2.5 MG/0.5ML(0.5%) NEB SOLN NEB ONE (10:41)
[2024-01-29 10:42] LABS: Anion Gap 3 (5-15); Calcium 9.7 mg/dL (8.5-10.1); Carbon Dioxide 32 mmol/L (20-30)
[2024-01-29 10:47] LABS: BUN/Creatinine Ratio 15.7 (10.0-20.0); Blood Urea Nitrogen 13 mg/dL (9-23); Glucose 152 mg/dL (74-106)
[2024-01-29] MEDS: methylPREDNISolone SOD SUCC 125 MG/2 ML VL IV ONE (10:50)
[2024-01-29 11:19] LABS: Urine Bacteria None Seen /hpf (None Seen); Urine WBC None Seen /hpf (0 - 3)
[2024-01-29 11:53] LABS: Urine Blood Negative /uL (Negative); Urine Clarity Clear (Clear); Urine Color Colorless (Yellow); Urine Hyaline Cast FEW /lpf (0 - 2); Urine Mucus FEW (None Seen); Urine Protein, UAD Negative (Negative); Urine Specific Gravity 1.008 (1.001-1.035); Urine Urobilinogen Normal (Negative)
[2024-01-29] MEDS ORDERED: ONDANSETRON HCL 4 MG/2 ML VIAL IV PRN (15:30)
[2024-01-29] MEDS ORDERED: HYDROcodone-ACET 5/325MG TAB PO PRN (15:30)
[2024-01-29] MEDS ORDERED: DOCUSATE SOD 100 MG CAP PO PRN (15:30)
[2024-01-29] MEDS ORDERED: ACETAMINOPHEN 325 MG TAB PO PRN (15:30)
[2024-01-29] MEDS ORDERED: MORPHINE SULFATE INJ 2 MG/ml SYRG IV PRN (15:30)
[2024-01-29] MEDS: IPRATROPIUM BROM 0.5 MG/2.5ML INH SOL NEB SCH (19:39)
[2024-01-29] MEDS: ALBUTEROL SULF 2.5 MG/0.5ML(0.5%) NEB SOLN NEB SCH (19:39)
[2024-01-29] MEDS: methylPREDNISolone SOD SUCC 125 MG/2 ML VL IV SCH (23:02)
[2024-01-30] VITALS (15 sets, daily range): BP systolic 115–122; BP diastolic 67–81; PULSE 86–98; RESP 18–20; TEMP 36.9; O2SAT 93–98
[2024-01-30 06:45] LABS: Hematocrit 46.6 % (41.0-53.0); Hemoglobin 15.7 g/dL (13.5-17.5); Mean Corpuscular Hemoglobin 29.2 pg (28.0-32.0); Mean Corpuscular Hgb Conc. 33.6 g/dL (32.0-36.0); Mean Corpuscular Volume 86.7 fL (80.0-100.0); Red Blood Cells 5.38 10^6/uL (4.5-5.90); Red Cell Distribution Width 15.2 % (11.8-14.3); White Blood Cell 12.9 10^3/uL (4.4-10.8)
[2024-01-30 06:59] LABS: Alanine Aminotransferase 23 U/L (7-40); Alkaline Phosphatase 90 U/L (46-116); Anion Gap 7 (5-15); BUN/Creatinine Ratio 21.5 (10.0-20.0); Band Neutrophils % (manual) 0; Basophils % (manual) 0 (0.0-2.0); Blast Cells 0; Blood Urea Nitrogen 17 mg/dL (9-23); Calcium 10.1 mg/dL (8.7-10.4); Carbon Dioxide 27 mmol/L (20-30); Chloride 102 mmol/L (98-107); Eosinophils % (manual) 0 (0-7); Glucose 239 mg/dL (74-106); Metamyelocytes % 0; Myelocytes % 0; Potassium 4.2 mmol/L (3.5-5.1); Promyelocytes % 0; Reactive Lymphocytes 0; Sodium 136 mmol/L (136-145)
[2024-01-30 07:00] LABS: Albumin 4.3 g/dL (3.2-4.8); Aspartate Aminotransferase 13 U/L (13-40); Total Protein 6.8 g/dL (5.7-8.2)
[2024-01-30 09:28] LABS: Lymphocytes % (manual) 2 (10.0-50.0); Monocytes % (manual) 1 (0-12); Platelet Estimate Adequate
[2024-01-30] MEDS: ENOXAPARIN SOD 40 MG/0.4 ML SYRINGE SC SCH (10:21)
[2024-01-30] MEDS ORDERED: METH4PAK PO (15:25)
[2024-02-01 09:43] LABS: Hepatitis B Surface Antigen Negative (Negative)
[2024-02-01 10:04] LABS: Hepatitis C Antibody Negative (Negative)
== END 2024-01-30 19:00 | disposition home or self-care (01) | DRG 140 ==
LOC: ER 09:12 → WEST WING 15:30 → OVERFLOW 15:30 → WEST WING 23:22
PROVIDERS: ADMIT Internal Medicine; ATTEND Internal Medicine
DX: J44.1 Chronic obstructive pulmonary disease with (acute) exacerbation (principal); J96.21 Acute and chronic respiratory failure with hypoxia; Z99.81 Dependence on supplemental oxygen; E11.9 Type 2 diabetes mellitus without complications; I10 Essential (primary) hypertension; F17.210 Nicotine dependence, cigarettes, uncomplicated; Z79.899 Other long term (current) drug therapy; Z79.4 Long term (current) use of insulin
CPT/HCPCS: 36415; 71045; 80048; 80053; 81001; 83880; 84484; 85007; 85025; 85027; 85379; 86803; 87340; 94640; 96374; 96376; G0378

== ENCOUNTER 2024-03-17 11:02 | Emergency (ER) | payer MEDICAID ==
[~2024-03-17] VITALS: Ht 182.9 cm; Wt 140.2 kg
[~2024-03-17 11:02] MED LIST changes: -ALBU108A5 INH; -ATOR20TA50 PO; +AZIT500T66 PO; +SACU1TAB PO
[2024-03-17 11:53] LABS: Basophils # (auto) 0.1 10 ^3/uL (0-0.2); Basophils % (auto) 0.6 % (0.0-2.0); Eosinophils # (auto) 0.2 10 ^3/uL (0-0.8); Eosinophils % (auto) 1.9 % (0.0-7.0); Hematocrit 45.4 % (41.0-53.0); Hemoglobin 15.4 g/dL (13.5-17.5); Lymphocytes # (auto) 0.7 10 ^3/uL (0.4-5.4); Lymphocytes % (auto) 7.7 % (10.0-50.0); Mean Corpuscular Hemoglobin 29.4 pg (28.0-32.0); Mean Corpuscular Hgb Conc. 33.9 g/dL (32.0-36.0); Mean Corpuscular Volume 86.7 fL (80.0-100.0); Monocytes # (auto) 0.7 10 ^3/uL (0-1.3); Monocytes % (auto) 7.6 % (0.0-12.0); Neutrophils # (auto) 7.4 10 ^3/uL (1.6-8.6); Neutrophils % (auto) 82.2 % (37.0-80.0); Nucleated Red Blood Cells % 0.2 %; Red Blood Cells 5.23 10^6/uL (4.5-5.90)
[2024-03-17 12:07] LABS: Anion Gap 4 (5-15); Carbon Dioxide 30 mmol/L (20-30); Chloride 105 mmol/L (98-107); Potassium 4.4 mmol/L (3.5-5.1); Sodium 139 mmol/L (136-145)
[2024-03-17 12:08] LABS: Calcium 9.7 mg/dL (8.7-10.4)
[2024-03-17 12:13] LABS: BUN/Creatinine Ratio 22.5 (10.0-20.0); Blood Urea Nitrogen 16 mg/dL (9-23); Glucose 180 mg/dL (74-106)
[2024-03-17] MEDS: ENOXAPARIN SOD 150 MG/1 ML SYRINGE SC ONE (12:36)
[2024-03-17] MEDS: FUROSEMIDE 40 MG/4 ML VIAL IV ONE (12:43)
[2024-03-17] MEDS ORDERED: POTA15TA12 PO (13:47)
[2024-03-17] MEDS ORDERED: FURO1TAB33 PO (13:47)
[2024-03-17] MEDS ORDERED: AZIT500T66 PO (13:47)
[2024-03-17] MEDS ORDERED: PRED20TA2 PO (13:50)
[2024-03-17 14:01] VITALS: BP 122/74; PULSE 83; RESP 18; TEMP 98.1; O2SAT 94
== END 2024-03-17 14:03 | disposition home or self-care (01) ==
LOC: ER 11:02
DX: J96.00 Acute respiratory failure, unspecified whether with hypoxia or hypercapnia (principal); J44.1 Chronic obstructive pulmonary disease with (acute) exacerbation; E11.65 Type 2 diabetes mellitus with hyperglycemia; I11.0 Hypertensive heart disease with heart failure; I50.9 Heart failure, unspecified; F17.210 Nicotine dependence, cigarettes, uncomplicated
CPT/HCPCS: 36415; 71045; 80048; 84484; 85025; 85379; 93005; 96372; 96374; 99291; J1650; J1940

== ENCOUNTER 2024-04-01 12:56 | Inpatient (IN) | payer MEDICAID ==
[~2024-04-01] VITALS: Ht 182.9 cm; Wt 136.6 kg
[~2024-04-01 12:56] MED LIST changes: +PRED20TA2 PO
[2024-04-01 14:19] LABS: Basophils # (auto) 0 10 ^3/uL (0-0.2); Basophils % (auto) 0.5 % (0.0-2.0); Eosinophils # (auto) 0.1 10 ^3/uL (0-0.8); Eosinophils % (auto) 1.6 % (0.0-7.0); Hematocrit 47.6 % (41.0-53.0); Hemoglobin 16.1 g/dL (13.5-17.5); Lymphocytes % (auto) 10.9 % (10.0-50.0); Mean Corpuscular Hemoglobin 29.5 pg (28.0-32.0); Mean Corpuscular Hgb Conc. 33.8 g/dL (32.0-36.0); Mean Corpuscular Volume 87.4 fL (80.0-100.0); Monocytes # (auto) 0.7 10 ^3/uL (0-1.3); Monocytes % (auto) 7.9 % (0.0-12.0); Neutrophils # (auto) 7.2 10 ^3/uL (1.6-8.6); Neutrophils % (auto) 79.1 % (37.0-80.0); Nucleated Red Blood Cells % 0.1 %; Red Blood Cells 5.45 10^6/uL (4.5-5.90); Red Cell Distribution Width 15.2 % (11.8-14.3); White Blood Cell 9.1 10^3/uL (4.4-10.8)
[2024-04-01 14:34] LABS: Chloride 105 mmol/L (98-107); Potassium 4.6 mmol/L (3.5-5.1); Sodium 142 mmol/L (136-145)
[2024-04-01 14:35] LABS: Anion Gap 7 (5-15); Carbon Dioxide 30 mmol/L (20-30)
[2024-04-01 14:36] LABS: Calcium 9.7 mg/dL (8.7-10.4)
[2024-04-01 14:40] LABS: BUN/Creatinine Ratio 21.6 (10.0-20.0); Blood Urea Nitrogen 21 mg/dL (9-23); Glucose 163 mg/dL (74-106)
[2024-04-01] MEDS: FUROSEMIDE 40 MG/4 ML VIAL IV ONE (14:49)
[2024-04-01 14:56] VITALS: PULSE 81; RESP 19; O2SAT 93
[2024-04-01 15:28] LABS: Urine Bacteria None Seen /hpf (None Seen)
[2024-04-01 15:38] LABS: Urine Blood Negative /uL (Negative); Urine Clarity Clear (Clear); Urine Color Light-Yellow (Yellow); Urine Hyaline Cast FEW /lpf (0 - 2); Urine Protein, UAD Negative (Negative); Urine Specific Gravity 1.012 (1.001-1.035); Urine Urobilinogen Normal (Negative); Urine WBC <1 /hpf (0 - 3)
[2024-04-01] MEDS ORDERED: DEXTROSE (50%) 50ML SYRG IV PRN (16:00)
[2024-04-01] MEDS ORDERED: NITROGLYCERIN 0.4 MG SL TAB SL PRN (16:00)
[2024-04-01] MEDS ORDERED: MORPHINE SULFATE INJ 2 MG/ml SYRG IV PRN (16:00)
[2024-04-01] MEDS ORDERED: ONDANSETRON HCL 4 MG/2 ML VIAL IV PRN (16:00)
[2024-04-01 16:30] LABS: Amphetamine Screen, Urine Pos (NEGATIVE); Barbiturate Scree,Urine Neg (NEGATIVE); Benzodiazephine Screen, Urine Neg (NEGATIVE); Cannabinoid Screen, Urine Neg (NEGATIVE); Cocaine Screen, Urine Neg (NEGATIVE); Opiate Scree,Urine Neg (NEGATIVE); Phencyclidine Screen, Urine Neg (NEGATIVE)
[2024-04-01] MEDS: FUROSEMIDE 40 MG/4 ML VIAL IV SCH (17:23)
[2024-04-01] MEDS: ACCU-CHEK COMFORT CURVE STRIP VI SCH (17:23)
[2024-04-01] MEDS: InsuLIN REG 1unit/0.01ml Soln (100units/ml) SC SCH (17:30)
[2024-04-01 22:05] VITALS: BP 124/84; PULSE 77; RESP 21; TEMP 97.7; O2SAT 97
[2024-04-01] MEDS: CARVEDILOL 3.125 MG TAB PO SCH (22:44)
[2024-04-01] MEDS: POTASSIUM CHL 20 Meq TABLET PO SCH (22:45)
[2024-04-01 22:57] VITALS: BP 124/84; PULSE 77; RESP 17; RESP 21; TEMP 97.7; O2SAT 94; O2SAT 97
[2024-04-02] VITALS (7 sets, daily range): BP systolic 103–135; BP diastolic 45–96; PULSE 71–90; RESP 16–22; TEMP 97.1–98.7; O2SAT 92–97
[2024-04-02 05:41] LABS: Calcium 9.2 mg/dL (8.7-10.4); Chloride 102 mmol/L (98-107); Potassium 3.8 mmol/L (3.5-5.1); Sodium 141 mmol/L (136-145)
[2024-04-02 05:42] LABS: Anion Gap 6 (5-15); Carbon Dioxide 33 mmol/L (20-30)
[2024-04-02 05:47] LABS: Blood Urea Nitrogen 15 mg/dL (9-23); Glucose 126 mg/dL (74-106)
[2024-04-02 05:48] LABS: Magnesium 1.9 mg/dL (1.6-2.6)
[2024-04-02] MEDS: ASPirin-EC 81 mg tab PO SCH (09:03)
[2024-04-02] MEDS: ENOXAPARIN SOD 40 MG/0.4 ML SYRINGE SC SCH (09:04)
[2024-04-02] MEDS: POTASSIUM CHL 20 Meq TABLET PO SCH (10:00)
[2024-04-03] VITALS (8 sets, daily range): BP systolic 106–123; BP diastolic 51–87; PULSE 52–90; RESP 16–20; TEMP 97.9–98.6; O2SAT 91–100
[2024-04-03 06:41] LABS: Anion Gap 5 (5-15); Carbon Dioxide 36 mmol/L (20-30); Chloride 98 mmol/L (98-107); Sodium 139 mmol/L (136-145)
[2024-04-03 06:42] LABS: Calcium 9.6 mg/dL (8.7-10.4)
[2024-04-03 06:47] LABS: BUN/Creatinine Ratio 18.2 (10.0-20.0); Blood Urea Nitrogen 14 mg/dL (9-23); Glucose 131 mg/dL (74-106)
[2024-04-03] MEDS: HYDROcodone-ACET 5/325MG TAB PO PRN (23:38)
[2024-04-04 01:00] VITALS: BP 120/73; PULSE 61; RESP 22; TEMP 97.9; O2SAT 99
[2024-04-04 05:00] VITALS: BP 137/88; PULSE 87; RESP 18; TEMP 98.1; O2SAT 93
[2024-04-04 06:16] LABS: Chloride 99 mmol/L (98-107); Potassium 4.3 mmol/L (3.5-5.1); Sodium 139 mmol/L (136-145)
[2024-04-04 06:17] LABS: Anion Gap 2 (5-15); Calcium 9.7 mg/dL (8.7-10.4); Carbon Dioxide 38 mmol/L (20-30)
[2024-04-04 06:22] LABS: BUN/Creatinine Ratio 16.7 (10.0-20.0); Blood Urea Nitrogen 14 mg/dL (9-23); Glucose 133 mg/dL (74-106)
[2024-04-04 08:00] VITALS: PULSE 85; RESP 20; O2SAT 96
[2024-04-04 09:00] VITALS: BP 111/51; PULSE 85; RESP 20; TEMP 98.2; O2SAT 96
[2024-04-04 09:05] LABS: Hepatitis B Surface Antigen Negative (Negative)
[2024-04-04 09:26] LABS: Hepatitis C Antibody Negative (Negative)
[2024-04-04] MEDS ORDERED: CARV-214 OR (12:27)
[2024-04-04] MEDS ORDERED: FURO40TA4 PO (12:27)
[2024-04-04] MEDS ORDERED: POTA15TA12 PO (12:27)
[2024-04-04] MEDS ORDERED: SACU1TAB PO (12:27)
[2024-04-04 12:57] VITALS: BP 100/62; PULSE 67; RESP 18; TEMP 98; O2SAT 96
[2024-04-04 15:15] VITALS: BP 100/62; PULSE 67; RESP 18; TEMP 98; O2SAT 96
== END 2024-04-04 15:54 | disposition home or self-care (01) | DRG 194 ==
LOC: ER 12:56 → TELE 15:50 → TELE-E-ADS 21:50
PROVIDERS: ADMIT Hospitalist; ATTEND Hospitalist
DX: I11.0 Hypertensive heart disease with heart failure (principal); J96.00 Acute respiratory failure, unspecified whether with hypoxia or hypercapnia; I42.9 Cardiomyopathy, unspecified; I50.33 Acute on chronic diastolic (congestive) heart failure; J44.1 Chronic obstructive pulmonary disease with (acute) exacerbation; F15.10 Other stimulant abuse, uncomplicated; E66.01 Morbid (severe) obesity due to excess calories; E78.5 Hyperlipidemia, unspecified; E11.9 Type 2 diabetes mellitus without complications; Z87.891 Personal history of nicotine dependence; Z83.3 Family history of diabetes mellitus; Z82.49 Family history of ischemic heart disease and other diseases of the circulatory system; Z91.199 Patient's noncompliance with other medical treatment and regimen due to unspecified reason; Z68.41 Body mass index [BMI] 40.0-44.9, adult
CPT/HCPCS: 36415; 71046; 80048; 80307; 81001; 82962; 83735; 83880; 84484; 85025; 86803; 87340; 96374; 96376; G0378; J1815

== ENCOUNTER 2025-02-06 19:56 | Inpatient (IN) | payer MEDICAID ==
[~2025-02-06] VITALS: Ht 182.9 cm; Wt 138.0 kg
[~2025-02-06 19:56] MED LIST changes: -AZIT500T66 PO; -FURO1TAB33 PO; +FURO40TA4 PO; -LISI-275 PO; -PRED20TA2 PO
--- NOTE | 2025-02-06 20:32 | ED.PDOC ---
SOB-HPI HPI Comments HPI: Poor Historian. 59 year old male presents to the ED with chief complaint of SOB and bilateral leg swelling. Patient reports that he has been experiencing worsening SOB and bilateral leg swelling for the past 6-7 days. Patient has been seen in [facility] on 03/27/24 for similar symptoms. Patient denies any chest pain, dizziness, N/V, cough, and numbness/tingling/weakness of extremities. Past Medical history: HTN, HLD, DM, CHF, COPD Past Surgical history: Hernia Repair Medications: Carvedilol, Lasix, Lisinopril, Albuterol Allergies: NKDA Social History: denies ETOH, denies tobacco use, denies drug use Initial vitals: BP: 140/92 HR: 64 RR: 18 O2 Sat.: 95% Temp.: 98F REVIEW OF SYSTEMS: CONSTITUTIONAL: Denies acute: fever, diaphoresis, chills, HEAD: Denies acute: headache, photophobia Eyes: Denies acute: Double vision, vision loss, eye pain, eye discharge. EARS: Denies acute: tinnitus, hearing loss, ear discharge, ear pain, THROAT: Denies acute: sore throat, swelling, difficulty swallowing , pain with swallowing, change in voice. NECK: Denies acute: neck pain, neck swelling, stiff neck. HEART: Denies acute : chest pain, palpitations, LUNGS: Denies acute: wheezing, cough, hemoptysis ABDOMEN: Denies acute: abdominal pain, Nausea, Vomiting, diarrhea, melena , hematemesis, hematochezia SKIN: Denies acute: rash, redness, lesions, itchiness. EXTREMITIES: Denies acute: calf pain, numbness, tingling, weakness, denies pain in extremity. Denies acute: Low back pain. Neuro: Denies acute: focal neurological deficit, motor or sensory focal neurological deficit, tremors, seizure like activity, confusion, dizziness, change in mental status, loss of bowel or bladder function, cauda equina like symptoms. : Denies acute: dysuria, hematuria, flank pain, increase in urinary frequency. PSYCH: Denies acute: hallucination, suicidal ideation, homicidal ideation. PHYSICAL EXAM: General: ----[id number]----acute distress, awake and alert. Head: normocephalic, atraumatic. Neck: supple, trachea is midline, no swelling. Throat: Normal phonation. Eyes:, no erythema, no purulent discharge, no proptosis, no icterus. Heart: regular rate, regular rhythm, no significant murmur appreciated. Lungs: no apparent respiratory distress, Able to speak in full sentences. No wheezing, no rhonchi, no crackles. No stridors Clear to auscultation bilaterally. Abdomen: non tender to palpation, non distended, soft, no guarding, no rebound, + bowel sounds. Neuro: Awake, Alert, oriented to name, self, situation, follows commands GCS=15. Speech is normal. Skin: no petechia, no purpura, no cyanosis, non-pale, not jaundice. Lower extremities: --2/4 bilateral - Pitting edema no deformity, no focal swelling, no calf TTP. Makes eye contact. moves all four extremities. Face: no apparent facial droop. Ambulating in the ED independently. ED COURSE: Time Seen by MD: 20:29 Primary Care Provider: Reviewed notes: Medications, Allergies Information Source: Patient Mode of Arrival: Ambulatory Was a procedure done? Was a procedure done?: No Differential Dx Differential Diagnosis: Other (DDx include ACS, unstable angina, anxiety, PE, pneumothroax, neoplasm, cardiac ischemia, COPD, asthma, CHF, pleural effusion, tobacco abuse, pneumonia, hypoxia, hypercapnia, anemia., infection/sepsis., pulmonary edema. Asthma, Cardiac tamponade, infection.) X-Ray, Labs, Meds, VS Vital Signs Date Time Temp Pulse Resp B/P (MAP) Pulse Ox O2 Delivery O2 Flow Rate FiO2 02/06/25 22:09 142/78 02/06/25 21:46 98.3 73 18 142/78 (99) 95 98.3 02/06/25 21:46 73 18 95 Room Air* 0 21 02/06/25 20:25 98.0 64 18 140/92 (108) 95 98.0 Lab Test 02/06/25 22:30 02/06/25 21:43 02/06/25 20:43 Range/Units Urine Color Yellow Yellow Urine Clarity Clear Clear Urine pH 5.5 5.0-9.0 Urine Specific [place] 1.023 1.001-1.035 Urine Protein 1+ H Negative Urine Ketones Negative Negative Urine Blood Negative Negative /uL Urine Nitrite Negative Negative Urine Bilirubin Negative Negative Urine Urobilinogen Normal Negative mg/dL Urine Leukocyte Esterase Negative Negative /uL Urine RBC 1 0 - 3 /hpf Urine Microscopic WBC 1 0-3 /HPF Urine Squamous Epithelial Cells Few <5 /hpf Urine Bacteria None seen None Seen /hpf Urine Hyaline Casts Few 0 - 2 /lpf Urine Glucose Normal Normal mg/dL Lactic Acid Level 1.0 0.4-2.0 mmol/L Troponin I High Sensitivity 28 30 </=54 ng/L White Blood Count 8.9 4.4-10.8 10^3/uL Red Blood Count 5.75 4.5-5.90 10^6/uL Hemoglobin 16.8 13.5-17.5 g/dL Hematocrit 50.9 41.0-53.0 % Mean Corpuscular Volume 88.6 80.0-100.0 fL Mean Corpuscular Hemoglobin 29.2 28.0-32.0 pg Mean Corpuscular Hemoglobin Concent 33.0 32.0-36.0 g/dL Red Cell Distribution Width 14.5 H 11.8-14.3 % Platelet Count 143 140-450 10^3/uL Mean Platelet Volume 8.4 6.9-10.8 fL Neutrophils (%) (Auto) 79.2 37.0-80.0 % Lymphocytes (%) (Auto) 10.0 10.0-50.0 % Monocytes (%) (Auto) 8.4 0.0-12.0 % Eosinophils (%) (Auto) 1.8 0.0-7.0 % Basophils (%) (Auto) 0.6 0.0-2.0 % Neutrophils # (Auto) 7.1 1.6-8.6 10 ^3/uL Lymphocytes # (Auto) 0.9 0.4-5.4 10 ^3/uL Monocytes # (Auto) 0.7 0-1.3 10 ^3/uL Eosinophils # (Auto) 0.2 0-0.8 10 ^3/uL Basophils # (Auto) 0.1 0-0.2 10 ^3/uL Nucleated Red Blood Cells 1.0 % Sodium Level 142 136-145 mmol/L Potassium Level 4.4 3.5-5.1 mmol/L Chloride Level 106 98-107 mmol/L Carbon Dioxide Level 31 20-31 mmol/L Anion Gap 5 5-15 Blood Urea Nitrogen 23 9-23 mg/dL Creatinine 0.97 0.700-1.30 mg/dL Glomerular Filtration Rate Calc 89 >90 mL/min BUN/Creatinine Ratio 23.7 H 10.0-20.0 Serum Glucose 169 H 74-106 mg/dL Calcium Level 9.9 8.7-10.4 mg/dL Total Bilirubin 1.4 H 0.2-1.0 mg/dL Aspartate Amino Transferase (AST) 22 13-40 U/L Alanine Aminotransferase (ALT) 29 7-40 U/L Alkaline Phosphatase 111 46-116 U/L B-Type Natriuretic Peptide 622.37 0-100 pg/mL Total Protein 6.2 5.7-8.2 g/dL Albumin 4.1 3.2-4.8 g/dL Current Medications Medications (Trade) Dose Ordered Sig/Hector Route Start Time Stop Time Status Last Admin Furosemide (Lasix Injection) 60 mg ONCE ONCE IV 02/06/25 20:30 02/06/25 20:31 DC 02/06/25 22:09 [place] [id number] Ph: [phone] DIAGNOSTIC IMAGING Diagnostic Imaging Report : [id number] Signed PATIENT: RAGHAV GUDINO ACCT: [id number] UNIT: [id number] : 1965 LOC: ER ROOM / BED: / AGE / SEX: 59 / M ADM STATUS: REG ER SERVICE 28 ORDERING PHYSICIAN: ROHAN MALDONADO DO PROCEDURE(s): CXRP - CHEST PORTABLE REASON: sob ORDER NUMBER(s): [id number], ACCESSION NUMBER(s): [id number] CHEST RADIOGRAPH Indication: sob Technique: Single frontal view of the chest was obtained Comparison: XY CHEST PORTABLE on DOS: 03/17/24, XY CHEST PORTABLE on DOS: 03/02/24, XY CHEST PORTABLE on DOS: 01/29/24 Findings/impression: Mild cardiomegaly otherwise no active cardiopulmonary disease. ATED BY: EMILY MANN DO DICTATED DATE/TIME: 02/06/252223 SIGNED BY: EMILY MANN DO SIGNED DATE/TIME: 02/06/252223 CC: Time of 1ST Reevaluation: 00:38 Reevaluation 1ST: Improved Patient Education/Counseling: Diagnosis, Treatment Family Education/Counseling: No Family Present Comments Patient presented with the above HPI.---dyspnea---workup was initiated. patient was found with the above mentioned diagnosis. the following medications were ordered: please refer to order lists of meds and tests obtained by myself Dr. Maldonado. Patient ED course and VS have been stabilized. Patient has been reassessed in the ED and remained in a stable condition. Pertinent incidental findings were discussed with the patient and/or family. Patient/family voices understanding and is agreeable with plan. Patient has been observed in the ED adequate length of time to insure improvement/stability. Escalation of care considered: Consideration of escalation to observation or admission Patient was ADMITTED to the medicine team for further evaluation and treatment of their presentation. All the reports of any imaging studies that were ordered by myself were reviewed by myself. Departure 1 Departure Time of Disposition: 20:48 Impression: Primary Impression: CHF exacerbation Disposition: ADMITTED INPATIENT Admit to: Tele Condition: Guarded Discharged With: Self Critical Care Note Critical Care Time?: No Heart Score Heart Score: Heart Score Response (Comments) Value History Slightly Suspicious 0 EKG Normal 0 Age 45-64 1 Risk Factors >3 or Hx ASHD 2 Troponin Normal limit 0 Total 3 I personally scribed for ROHAN MALDONADO DO ([email or web address]) on 02/06/25 at 20:32. Electronically submitted by William Bennett ([email or web address]). I personally scribed for ROHAN MALDONADO DO ([email or web address]) on 02/06/25 at 20:56. Electronically submitted by William Bennett ([email or web address]). ROHAN MALDONADO DO Feb 06, 2025 20:32
[2025-02-06 21:03] LABS: Basophils # (auto) 0.1 10 ^3/uL (0-0.2); Basophils % (auto) 0.6 % (0.0-2.0); Eosinophils # (auto) 0.2 10 ^3/uL (0-0.8); Eosinophils % (auto) 1.8 % (0.0-7.0); Hematocrit 50.9 % (41.0-53.0); Hemoglobin 16.8 g/dL (13.5-17.5); Lymphocytes # (auto) 0.9 10 ^3/uL (0.4-5.4); Mean Corpuscular Hemoglobin 29.2 pg (28.0-32.0); Mean Corpuscular Volume 88.6 fL (80.0-100.0); Monocytes # (auto) 0.7 10 ^3/uL (0-1.3); Monocytes % (auto) 8.4 % (0.0-12.0); Neutrophils # (auto) 7.1 10 ^3/uL (1.6-8.6); Neutrophils % (auto) 79.2 % (37.0-80.0); Platelet Count (auto) 143 10^3/uL (140-450); Red Blood Cells 5.75 10^6/uL (4.5-5.90); Red Cell Distribution Width 14.5 % (11.8-14.3); White Blood Cell 8.9 10^3/uL (4.4-10.8)
[2025-02-06 21:22] LABS: Alanine Aminotransferase 29 U/L (7-40); Albumin 4.1 g/dL (3.2-4.8); Alkaline Phosphatase 111 U/L (46-116); Anion Gap 5 (5-15); Aspartate Aminotransferase 22 U/L (13-40); BUN/Creatinine Ratio 23.7 (10.0-20.0); Blood Urea Nitrogen 23 mg/dL (9-23); Calcium 9.9 mg/dL (8.7-10.4); Carbon Dioxide 31 mmol/L (20-31); Chloride 106 mmol/L (98-107); Potassium 4.4 mmol/L (3.5-5.1); Sodium 142 mmol/L (136-145); Total Protein 6.2 g/dL (5.7-8.2)
[2025-02-06 21:26] LABS: Bilirubin, Total 1.4 mg/dL (0.2-1.0); Glucose 169 mg/dL (74-106)
[2025-02-06 21:46] VITALS: PULSE 73; RESP 18; O2SAT 95
[2025-02-06] MEDS: FUROSEMIDE 100 MG/10ML VIAL IV ONE (22:09)
--- NOTE | 2025-02-06 22:26 | DVH ---
CHEST RADIOGRAPH Indication: sob Technique: Single frontal view of the chest was obtained Comparison: XY CHEST PORTABLE on DOS: 03/17/24, XY CHEST PORTABLE on DOS: 03/02/24, XY CHEST PORTABLE o n DOS: 01/29/24 Findings/impression: Mild cardiomegaly otherwise no active cardiopulmonary disease.
[2025-02-06 23:32] LABS: Urine Bacteria None Seen /hpf (None Seen)
[2025-02-06] MEDS ORDERED: MORPHINE SULFATE INJ 2 MG/ml SYRG IV PRN (23:45)
[2025-02-06] MEDS ORDERED: NITROGLYCERIN 0.4 MG SL TAB SL PRN (23:45)
[2025-02-06] MEDS ORDERED: DOCUSATE SOD 100 MG CAP PO PRN (23:45)
[2025-02-06] MEDS ORDERED: DEXTROSE (50%) 50ML SYRG IV PRN (23:45)
[2025-02-06] MEDS ORDERED: ONDANSETRON HCL 4 MG/2 ML VIAL IV PRN (23:45)
[2025-02-06] MEDS ORDERED: ACETAMINOPHEN 325 MG TAB PO PRN (23:45)
[2025-02-06] MEDS ORDERED: HYDROcodone-ACET 5/325MG TAB PO PRN (23:45)
[2025-02-06] MEDS ORDERED: hydrALAZINE HCL 20 MG/ML VL IV PRN (23:45)
--- NOTE | 2025-02-06 23:48 | DVHHP2 ---
History of Present Illness Reason for Visit: Acute exacerbation of congestive heart failure History of Present Illness The patient is a 59-year-old male with past medical history of hypertension, hyp erlipidemia, CHF, COPD, and diabetes mellitus who presented to [facility] ED with complaint of shortness of breaths. Patient reports symptoms progressively get worse with bilateral lower extremity swelling for the past 7 days, increased work of breathing, getting worse today that prompted this visit. Patient was seen and evaluated in the ED, laboratory data shows WBC 8.9, platelets 143, sodium 142, potassium 4.4, BUN 23, creatinine 0.97, glucose 169, troponin 28, total bilirubin 1.4, blood pressure 142/78, heart rate 73, temperature 98.3 F, O2 saturation 90% on oxygen. Chest x-ray revealing mild cardiomegaly otherwise no active cardiopulmonary disease. Patient was started on IV Lasix, please see medication orders section in the computer. On my a ssessment, patient denied chest pain, no cough, no headache, no dizziness, currently on oxygen, no nausea, no vomiting, no fever, no chills. Patient was admitted for further evaluation and medical management. Past Medical History HTN, HLD, DM, CHF, COPD Past Surgical History Hernia Repair Family History Reviewed, noncontributory to the management of this case. Past Social History The patient lives at home, denies smoking, alcohol or illicit drugs abuse. Review of Systems Constitutional: Yes: Weakness; No: Fever, Chills, Sweats, Malaise, Other Eyes: No: Pain, Vision change, Conjunctivae inflammation, Eyelid inflammation, Other, Redness ENT: No: Ear pain, Ear discharge, Nose pain, Nose discharge, Nose congestion, Mouth pain, Mouth swelling, Throat pain, Throat swelling, Other Respiratory: Shortness of breath, Other (SOB at rest); No: Cough, Dry, SOB with excertion, Wheezing, Hemoptysis, Pleuritic Pain, Sputum, Wheezing Cardiovascular: Edema (Lower extremity swelling); No: Chest Pain, Palpitations, Orthopnea, Paroxysmal Noc. Dyspnea, Lt Headedness, Other Gastrointestinal: No: Nausea, Vomiting, Abdominal Pain, Diarrhea, Constipation, Melena, Hematochezia, Other Genitourinary: No Dysuria, No Frequency, No Incontinence, No Hematuria, No Retention, No Other Musculoskeletal: No: other, neck pain, shoulder pain, arm pain, back pain, hand pain, leg pain, foot pain Skin: No: Rash, Lesions, Jaundice, Bruising, Other Neurological: No: Weakness, Numbness, Incoordination, Change in speech, Confusion, Seizures, Other Allergies: Coded Allergies: NO KNOWN ALLERGIES (Unverified , 09/16/14) Medications Current Medications Medications Dose Ordered Sig/Hector Route Start Time Stop Time Status Last Admin Dose Admin Nitroglycerin 0.4 mg Q5MINP PRN SL 02/06/25 23:45 Morphine Sulfate 2 mg Q30M PRN IV 02/06/25 23:45 Exam Vital Signs Vital Signs Date Time Temp Pulse Resp B/P (MAP) Pulse Ox O2 Delivery O2 Flow Rate FiO2 02/06/25 22:09 142/78 02/06/25 21:46 98.3 73 18 95 98.3 02/06/25 21:46 Room Air* 0 21 General Appearance: Alert, Oriented X3, Cooperative, No acute distress HEENT: Atraumatic, PERRLA, EOMI, Mucous membr. moist/pink Respiratory: Normal air movement, Other (Diminished breath sounds) Cardiovascular: Regular rate, Normal S1, Normal S2, No murmurs Abdominal: Normal bowel sounds, Soft, No tenderness, No hepatospenomegaly, No masses Extremities: No clubbing, No cyanosis, No edema, Normal pulses, No tenderness/swelling Skin: No rashes, No breakdown, No significant lesion Neuro: Normal speech, Normal tone, Sensation intact, Cranial nerves 3-12 NL, Reflexes 2+, Other (Generalized weakness) Psych/Mental Status: Mental status NL, Mood NL Labs/Xrays Labs Test 02/06/25 22:30 02/06/25 21:43 02/06/25 20:43 Range/Units Lactic Acid Level 1.0 0.4-2.0 mmol/L Troponin I High Sensitivity 28 </=54 ng/L White Blood Count 8.9 4.4-10.8 10^3/uL Red Blood Count 5.75 4.5-5.90 10^6/uL Hemoglobin 16.8 13.5-17.5 g/dL Hematocrit 50.9 41.0-53.0 % Mean Corpuscular Volume 88.6 80.0-100.0 fL Mean Corpuscular Hemoglobin 29.2 28.0-32.0 pg Mean Corpuscular Hemoglobin Concent 33.0 32.0-36.0 g/dL Red Cell Distribution Width 14.5 H 11.8-14.3 % Platelet Count 143 140-450 10^3/uL Mean Platelet Volume 8.4 6.9-10.8 fL Neutrophils (%) (Auto) 79.2 37.0-80.0 % Lymphocytes (%) (Auto) 10.0 10.0-50.0 % Monocytes (%) (Auto) 8.4 0.0-12.0 % Eosinophils (%) (Auto) 1.8 0.0-7.0 % Basophils (%) (Auto) 0.6 0.0-2.0 % Neutrophils # (Auto) 7.1 1.6-8.6 10 ^3/uL Lymphocytes # (Auto) 0.9 0.4-5.4 10 ^3/uL Monocytes # (Auto) 0.7 0-1.3 10 ^3/uL Eosinophils # (Auto) 0.2 0-0.8 10 ^3/uL Basophils # (Auto) 0.1 0-0.2 10 ^3/uL Nucleated Red Blood Cells 1.0 % Sodium Level 142 136-145 mmol/L Potassium Level 4.4 3.5-5.1 mmol/L Chloride Level 106 98-107 mmol/L Carbon Dioxide Level 31 20-31 mmol/L Anion Gap 5 5-15 Blood Urea Nitrogen 23 9-23 mg/dL Creatinine 0.97 0.700-1.30 mg/dL Glomerular Filtration Rate Calc 89 >90 mL/min BUN/Creatinine Ratio 23.7 H 10.0-20.0 Serum Glucose 169 H 74-106 mg/dL Calcium Level 9.9 8.7-10.4 mg/dL Total Bilirubin 1.4 H 0.2-1.0 mg/dL Aspartate Amino Transferase (AST) 22 13-40 U/L Alanine Aminotransferase (ALT) 29 7-40 U/L Alkaline Phosphatase 111 46-116 U/L B-Type Natriuretic Peptide 622.37 0-100 pg/mL Total Protein 6.2 5.7-8.2 g/dL Albumin 4.1 3.2-4.8 g/dL PATIENT: RAGHAV GUDINO ACCT: [id number] UNIT: [id number] : 1965 LOC: ER ROOM / BED: / AGE / SEX: 59 / M ADM STATUS: REG ER SERVICE 28 ORDERING PHYSICIAN: ROHAN MALDONADO DO PROCEDURE(s): CXRP - CHEST PORTABLE REASON: sob ORDER NUMBER(s): [id number], ACCESSION NUMBER(s): [id number] CHEST RADIOGRAPH Indication: sob Technique: Single frontal view of the chest was obtained Comparison: XY CHEST PORTABLE on DOS: 03/17/24, XY CHEST PORTABLE on DOS: 03/02/24, XY CHEST PORTABLE on DOS: 01/29/24 Findings/impression: Mild cardiomegaly otherwise no active cardiopulmonary disease. Assessment/Plan Assessment/Plan Acute exacerbation congestive heart failure Generalized weakness Diabetes mellitus with hyperglycemia Plan 1. Admit to telemetry unit 2. Breathing treatment 3. Pain control management 4. Management of fluids and electrolytes 5. Consultation for hospitalist 6. Diagnostic tests chest x-ray 7. DVT prophylaxis-on aspirin 8. Repeat labs CBC, CMP in a.m. 9. Continue with current medical management 10. Treatment plan discussed with patient and RN. Patient verbalized understanding. Plan discussed with: Patient, Other (RN) My Orders Orders - WAQAS QUIROZ DNP Procedure Category Date Status Time Aspirin Tablet PHA 02/07/25 Logged 10:00 Furosemide Injection PHA 02/07/25 Logged (Lasix Injection) 10:00 Carvedilol Tablet PHA 02/07/25 Logged (Coreg Tablet) 10:00 Consistent DIET 02/07/25 Transmitted Carb(Ccho)Diabetes Breakfast Hydralazine Injection PHA 02/06/25 Logged (Apresoline Inject 23:45 Glucose Blood PHA 02/07/25 Logged (Accu-Chek Comfort 07:00 Insulin R (Human) PHA 02/07/25 Logged (Insulin R) 22:00 Insulin R (Human) PHA 02/07/25 Logged (Insulin R) 07:00 Dextrose 50% Syringe PHA 02/06/25 Logged 23:45 Allergies GUILLERMO 02/06/25 In Process 23:39 Code Status CODE 02/06/25 Transmitted 23:39 Sodium Chloride Lock PHA 02/07/25 Logged (Saline Lock Ns) 06:00 Oxygen Per Hour RT 02/06/25 Transmitted 23:39 Hydrocodone-Acet PHA 02/06/25 Logged 5/325mg Tab (Lamar 23:45 Ondansetron Hcl PHA 02/06/25 Logged (Zofran) 23:45 Docusate Sodium [facility] 02/06/25 Logged Capsule (Colace 23:45 Complete Blood Count LAB 02/07/25 Verified 04:00 Comprehensive LAB 02/07/25 Verified Metabolic Panel 04:00 Condition: Serious GUILLERMO 02/06/25 In Process 23:39 Acetaminophen Tablet [facility] 02/06/25 Logged (Tylenol Tablet) 23:45 Bedrest With Bathroom GUILLERMO 02/06/25 In Process Privileg 23:39 Sequential [facility] 02/06/25 In Process Compression Device Admit ADMIT 02/06/25 Transmitted 23:46 Nitroglycerin [facility] 02/07/25 Transmitted Sublingual (Ntrostat 00:00 Morphine Sulfate PHA 02/07/25 Transmitted Injection 00:00 Stat Ekg For Chest [facility] 02/06/25 Transmitted Pain 23:46 Notify Md Of Changes [facility] 02/06/25 Transmitted From Base 23:46 Transfer Specialist For [facility] 02/06/25 Transmitted 24 Hours 23:46 Rhythm Strips Once [facility] 02/06/25 Transmitted Every Shift 23:46 Oxygen By Nasal RT 02/06/25 Transmitted Cannula 23:46 Problem List: (1) Acute exacerbation of congestive heart failure (2) Generalized weakness (3) Diabetes mellitus with hyperglycemia Date of Service: Feb 06, 2025 Billing Provider: WAQAS QUIROZ DNP Common Visit Codes: 83830-[id number] INP/OBS CARE (HIGH) WAQAS QUIROZ DNP Feb 06, 2025 23:48
[2025-02-07] MEDS ORDERED: NITROGLYCERIN 0.4 MG SL TAB SL PRN
[2025-02-07] MEDS ORDERED: MORPHINE SULFATE INJ 2 MG/ml SYRG IV PRN
[2025-02-07 00:05] LABS: Urine Blood Negative /uL (Negative); Urine Clarity Clear (Clear); Urine Color Yellow (Yellow); Urine Hyaline Cast FEW /lpf (0 - 2); Urine Protein, UAD 1+ (Negative); Urine Specific Gravity 1.023 (1.001-1.035); Urine Squamous Epithelial Cell FEW /hpf (<5); Urine Urobilinogen Normal (Negative); Urine WBC 1 /HPF (0-3); Urine pH 5.5 (5.0-9.0)
[2025-02-07 05:09] LABS: Basophils # (auto) 0 10 ^3/uL (0-0.2); Basophils % (auto) 0.4 % (0.0-2.0); Eosinophils # (auto) 0.2 10 ^3/uL (0-0.8); Hematocrit 50.5 % (41.0-53.0); Hemoglobin 16.9 g/dL (13.5-17.5); Lymphocytes % (auto) 11.9 % (10.0-50.0); Mean Corpuscular Hemoglobin 29.4 pg (28.0-32.0); Mean Corpuscular Hgb Conc. 33.4 g/dL (32.0-36.0); Mean Corpuscular Volume 88.2 fL (80.0-100.0); Monocytes # (auto) 0.9 10 ^3/uL (0-1.3); Monocytes % (auto) 9.8 % (0.0-12.0); Neutrophils # (auto) 6.6 10 ^3/uL (1.6-8.6); Neutrophils % (auto) 75.9 % (37.0-80.0); Nucleated Red Blood Cells % 0.7 %; Platelet Count (auto) 139 10^3/uL (140-450); Red Blood Cells 5.72 10^6/uL (4.5-5.90); Red Cell Distribution Width 14.5 % (11.8-14.3); White Blood Cell 8.7 10^3/uL (4.4-10.8)
[2025-02-07 05:28] LABS: Alanine Aminotransferase 24 U/L (7-40); Albumin 4.2 g/dL (3.2-4.8); Alkaline Phosphatase 96 U/L (46-116); Anion Gap 6 (5-15); Aspartate Aminotransferase 23 U/L (13-40); BUN/Creatinine Ratio 18.6 (10.0-20.0); Blood Urea Nitrogen 19 mg/dL (9-23); Calcium 10.1 mg/dL (8.7-10.4); Chloride 103 mmol/L (98-107); Potassium 4.2 mmol/L (3.5-5.1); Sodium 144 mmol/L (136-145); Total Protein 6.4 g/dL (5.7-8.2)
[2025-02-07 05:32] LABS: Bilirubin, Total 1.8 mg/dL (0.2-1.0); Carbon Dioxide 35 mmol/L (20-31); Glucose 128 mg/dL (74-106)
[2025-02-07 05:57] VITALS: TEMP 98.1
[2025-02-07] MEDS: SODIUM CHLOR 0.9% PF (SALINE LOCK) 10ML VIAL/SYR IV SCH (06:04)
[2025-02-07] MEDS: ACCU-CHEK COMFORT CURVE STRIP VI SCH (06:05)
[2025-02-07] MEDS: InsuLIN REG 1unit/0.01ml Soln (100units/ml) SC SCH (06:07)
[2025-02-07 06:20] VITALS: PULSE 78; RESP 18; O2SAT 95
[2025-02-07 08:39] VITALS: PULSE 85; RESP 19; O2SAT 96
[2025-02-07] MEDS: ASPirin 81 mg TAB PO SCH (10:15)
[2025-02-07] MEDS: FUROSEMIDE 40 MG/4 ML VIAL IV SCH (10:16)
[2025-02-07] MEDS: CARVEDILOL 3.125 MG TAB PO SCH (10:17)
[2025-02-07 12:25] VITALS: RESP 19
[2025-02-07 16:00] VITALS: BP 118/64; PULSE 76; O2SAT 90
--- NOTE | 2025-02-07 16:44 | DVHDS2 ---
Discharge Summary Date of Admission Feb 06, 2025 at 23:33 Date of Discharge: Feb 07, 2025 Labs/Diagnostic Data: Laboratory Results Test 02/07/25 06:03 02/07/25 04:33 02/06/25 22:30 02/06/25 21:43 POC Glucose 150 mg/dl (70-106) White Blood Count 8.7 10^3/uL (4.4-10.8) Red Blood Count 5.72 10^6/uL (4.5-5.90) Hemoglobin 16.9 g/dL (13.5-17.5) Hematocrit 50.5 % (41.0-53.0) Mean Corpuscular Volume 88.2 fL (80.0-100.0) Mean Corpuscular Hemoglobin 29.4 pg (28.0-32.0) Mean Corpuscular Hemoglobin Concent 33.4 g/dL (32.0-36.0) Red Cell Distribution Width 14.5 % (11.8-14.3) Platelet Count 139 10^3/uL (140-450) Mean Platelet Volume 8.3 fL (6.9-10.8) Neutrophils (%) (Auto) 75.9 % (37.0-80.0) Lymphocytes (%) (Auto) 11.9 % (10.0-50.0) Monocytes (%) (Auto) 9.8 % (0.0-12.0) Eosinophils (%) (Auto) 2.0 % (0.0-7.0) Basophils (%) (Auto) 0.4 % (0.0-2.0) Neutrophils # (Auto) 6.6 10 ^3/uL (1.6-8.6) Lymphocytes # (Auto) 1.0 10 ^3/uL (0.4-5.4) Monocytes # (Auto) 0.9 10 ^3/uL (0-1.3) Eosinophils # (Auto) 0.2 10 ^3/uL (0-0.8) Basophils # (Auto) 0 10 ^3/uL (0-0.2) Nucleated Red Blood Cells 0.7 % Sodium Level 144 mmol/L (136-145) Potassium Level 4.2 mmol/L (3.5-5.1) Chloride Level 103 mmol/L (98-107) Carbon Dioxide Level 35 mmol/L (20-31) Anion Gap 6 (5-15) Blood Urea Nitrogen 19 mg/dL (9-23) Creatinine 1.02 mg/dL (0.700-1.30) Glomerular Filtration Rate Calc 84 mL/min (>90) BUN/Creatinine Ratio 18.6 (10.0-20.0) Serum Glucose 128 mg/dL (74-106) Calcium Level 10.1 mg/dL (8.7-10.4) Total Bilirubin 1.8 mg/dL (0.2-1.0) Aspartate Amino Transferase (AST) 23 U/L (13-40) Alanine Aminotransferase (ALT) 24 U/L (7-40) Alkaline Phosphatase 96 U/L (46-116) Total Protein 6.4 g/dL (5.7-8.2) Albumin 4.2 g/dL (3.2-4.8) Urine Color Yellow (Yellow) Urine Clarity Clear (Clear) Urine pH 5.5 (5.0-9.0) Urine Specific [place] 1.023 (1.001-1.035) Urine Protein 1+ (Negative) Urine Ketones Negative (Negative) Urine Blood Negative /uL (Negative) Urine Nitrite Negative (Negative) Urine Bilirubin Negative (Negative) Urine Urobilinogen Normal mg/dL (Negative) Urine Leukocyte Esterase Negative /uL (Negative) Urine RBC 1 /hpf (0 - 3) Urine Microscopic WBC 1 /HPF (0-3) Urine Squamous Epithelial Cells Few /hpf (<5) Urine Bacteria None seen /hpf (None Seen) Urine Hyaline Casts Few /lpf (0 - 2) Urine Glucose Normal mg/dL (Normal) Lactic Acid Level 1.0 mmol/L (0.4-2.0) Troponin I High Sensitivity 28 ng/L (</=54) Test 02/06/25 20:43 B-Type Natriuretic Peptide 622.37 pg/mL (0-100) Other Laboratory Tests 02/07/25 04:33 Brief Hx & Hospital Course: 59-year-old male who initially presented to the hospital with the increasing shortness a breath and leg swelling found to have acute CHF exacerbation with systolic dysfunction. Patient does have known history of cardiomyopathy. Patient was given IV diuretics. Patient's hospital course was uneventful currently stable to be discharged with close follow up as an outpatient with the PCP and Cardiology. Resume home medications including Lasix. Condition at Discharge: Stable Final Diagnosis/Problems List 1. Acute CHF exacerbation with systolic dysfunction 2. Cardiomyopathy 3. Diabetes mellitus type 2 4. Chronic neck pain, outpatient follow up with the PCP for workup Discharge Disposition: Home SNF Discharge Will this Physician continue t: No Discharge Instruct/Medications Diet: Cardiac 2g Na,low cholest Diet comment: Two thousand ADA diet Activity: No Restrictions, As Tolerated Follow Up/Referral: Please follow up with the PCP in one week Follow up with the Cardiology in one week Follow up with the PCP for outpatient workup of the neck pain as patient has refused to getting workup done here and requesting to go home. Medications: Resume home medications. Discharge Statement: "Patient was advised to return to the ER or call 911 if any headaches, dizziness, shortness of breath, chest pain, abdominal pain, bleeding, fevers, or worsening of medical condition. Patient was counseled about treatment plan, medications, possible side effects, patientverbalized understanding. All questions were answered to the best of my ability. This discharge took greater then 30 minutes in planning, reviewing documentation, counseling the patient, and discussing with other team members." ASSESSMENT ASSESSMENT Assessment 1. Acute CHF exacerbation with systolic dysfunction 2. Cardiomyopathy 3. Diabetes mellitus type 2 4. Chronic neck pain, outpatient follow up with the PCP for workup Date of Service: Feb 07, 2025 Billing Provider: DANE NAGEL MD Common Visit Codes: 62574-DAZ/OBS DISCH DAY >30min DANE NAGEL MD Feb 07, 2025 16:44
[2025-02-07] MEDS ORDERED: InsuLIN REG 1unit/0.01ml Soln (100units/ml) SC SCH (22:00)
== END 2025-02-07 18:40 | disposition home or self-care (01) | DRG 194 ==
LOC: ER 19:56 → OVERFLOW 23:33
PROVIDERS: ADMIT Internal Medicine; ATTEND Internal Medicine
DX: I11.0 Hypertensive heart disease with heart failure (principal); J96.01 Acute respiratory failure with hypoxia; I50.23 Acute on chronic systolic (congestive) heart failure; I42.9 Cardiomyopathy, unspecified; E11.65 Type 2 diabetes mellitus with hyperglycemia; E78.5 Hyperlipidemia, unspecified; J44.9 Chronic obstructive pulmonary disease, unspecified; G89.29 Other chronic pain; Z79.899 Other long term (current) drug therapy
CPT/HCPCS: 36415; 71045; 80053; 81001; 82962; 83605; 83880; 84484; 85025; 96374; G0378; J1815